=== PATIENT | female | born 1945 | race Caucasian/White ===

== ENCOUNTER 2020-04-08 13:50 | Outpatient (REF) | payer MEDICARE, SELFPAY ==
[2020-04-09 09:09] LABS: BV Int Neg Control Negative (Negative); BV Int Pos Control Positive (Positive)
== END 2020-04-08 13:51 | disposition home or self-care (01) ==
LOC: HO.LAB 13:50
PROVIDERS: PCP Internal Medicine; Referring Provider Internal Medicine; Visit Provider Obstetrics & Gynecology
DX: Z30.433 Encounter for removal and reinsertion of intrauterine contraceptive device (principal); N89.8 Other specified noninflammatory disorders of vagina
CPT/HCPCS: 51798; 87480; 87510; 87660; 99212

== ENCOUNTER → 2020-04-15 07:44 | Outpatient (REF) | payer MEDICARE, SELFPAY ==
--- NOTE | 2020-04-15 07:51 | CA_ITS ---
Transthoracic Echocardiogram Patient (Last, First, Middle): Luciana Colon M Gender: Female Date of : 1945 Age: 74 Procedure Date: 04/15/2020 Procedure Type: Transthoracic Echocardiogram Location: OP Height: 167.64 cm Weight: 66.23 kg BSA: 1.75 m2 Heart Rate: bpm BP: 118 / 60 mmHg Construction Project Mgr: Referring MD: Andrea Morales MD Symptoms: R55 - Syncope and collapse Study Quality: Good ECG Rhythm: Sinus Conclusions: - The left ventricular systolic function is normal. The visually estimated ejection fraction is between 60-65%. - No obvious valvular pathology seen on this study. Findings Left Ventricle Normal left ventricular cavity size. There is mildly increased left ventricular wall thickness. The left ventricular systolic function is normal. The visually estimated ejection fraction is between 60-65%. There is no evidence of regional wall motion abnormalities. E/E prime ratio is between 8 and 15 consistent with indeterminate filling pressures. Evidence suggests grade I (mild) diastolic dysfunction. Right Ventricle Normal right ventricular cavity size and systolic function. Atria The left atrium is normal in size. The right atrium is normal in size. Aortic Valve There is a normal trileaflet aortic valve. There is no aortic valve stenosis. There is no aortic valve regurgitation. Mitral Valve The mitral valve appears normal. There is trace mitral valve regurgitation. There is no mitral valve stenosis. Pulmonic Valve The pulmonic valve was not well visualized. There is trace pulmonic valve regurgitation. Tricuspid Valve Normal tricuspid valve structure. There is mild tricuspid valve regurgitation. Top normal RVSP. Great Vessels The aortic annulus, sinuses of valsalva, and asc aorta are normal in size. Venous The inferior vena cava is normal in size and collapses greater than 50% with inspiration. Pericardium/Pleural There is no evidence of pericardial effusion. Prior Study Comparison No significant change compared to prior study. Recommendations, Care & Conclusions No obvious valvular pathology seen on this study. Measurements 2D Linear Measurements IVSd: 1.12 0.6-0.9/0.6-1.0 cm LVIDd: 3.72 3.9-5.3/4.2-5.9 cm LVIDd Index: 2.13 2.4-3.2/2.2-3.1 cm/m2 LVIDs: 2.22 2.0-3.6 cm LVPWd: 1.18 0.7-1.1 cm Ao Root: 2.90 2.1-3.5 cm LA Diam: 2.90 2.7-3.8/3.0-4.0 cm LAIDs Index: 1.66 1.5-2.3 cm/m2 LV Mass: 173.36 67-162/88-224 g LV Mass Index: 99.06 43-95/49-115 g/m2 LVOT Diam: 2.20 3.0+(-)1.3 cm Mitral Valve MV Pk E: 0.72 MV PK A: 0.95 MV Decel Time: 194.00 E/A: 0.80 E'Lateral: 7.83 E'Medial: 5.61 E/E' Med: 12.90 E/E' Lat: 9.20 PHT: 57.00 MVA PHT: 3.86 Decel Sutton: 3.73 Aortic Valve AoV Pk Tarik: 1.72 AoV Mn Tarik: 1.22 AoV VTI: 0.38 AoV Pk Grad: 12.00 Aov Mn Grad: 7.00 MARYLIN Cont.VTI: 2.64 LVOT LVOT Pk Tarik: 1.23 LVOT Mn Tarik: 0.89 LVOT VTI: 0.26 LVOT Pk Grad: 6.00 LVOT Mn Grad: 4.00 LVOT Diam: 2.20 LVOT Area: 3.80 Diastolic Function MV Pk E: 0.72 MV Pk A: 0.95 E/A: 0.80 E'Medial: 5.61 E/E' Med: 12.90 E' Laterial: 7.83 E/E' Lat: 9.20 Tricuspid Valve TR Pk Tarik: 2.84 TR Pk Grad: 32.00 RA Press: 3.00 RVSP: 35.00 Great Vessels Aorta Ao Root-2D: 2.90 2.0-3.7 cm Ao Asc: 3.30 2.1-3.4 cm Pulmonary Valve PV Pk Tarik: 1.09 Peak PV Grad: 5.00 Updated in Other Vendor System with Status of Final Bharathi Aguilera MD electronically signed on 04/16/2020 4:31:08 PM with status of Final
== END ==
LOC: HO.CARD 07:44
PROVIDERS: PCP Internal Medicine; Visit Provider Internal Medicine
DX: R55 Syncope and collapse (principal)
CPT/HCPCS: 93306

== ENCOUNTER 2020-04-30 11:50 | Outpatient (REF) | payer MEDICARE, SELFPAY ==
[2020-05-01 09:35] LABS: BV Int Neg Control Negative (Negative); BV Int Pos Control Positive (Positive)
== END 2020-04-30 11:51 | disposition home or self-care (01) ==
LOC: HO.LAB 11:50
PROVIDERS: PCP Internal Medicine; Visit Provider Obstetrics & Gynecology
DX: N81.9 Female genital prolapse, unspecified (principal)
CPT/HCPCS: 57160; 87480; 87510; 87660; 99212

== ENCOUNTER 2020-05-13 06:12 | Outpatient (REF) | payer MEDICARE, SELFPAY ==
[2020-05-13 07:07] LABS: MANUAL DIFF FLAG NO
[2020-05-13 07:22] LABS: Basophils Percent Auto 0.3 % (0-2); Hematocrit 39.2 % (37-47); Hemoglobin 12.7 g/dl (12.0-16.0); Imm Gran Abs Auto 0.01 X10*3/uL (0.00-0.03); Imm Gran Pct Auto 0.3 % (0.0-0.4); Lymphocytes Absolute Auto 1.9 X10*3/uL (1.2-4.9); Lymphocytes Percent Auto 51.5 % (20-40); Mean Corpuscular HGB Conc 32.4 g/dl (31.0-35.0); Mean Corpuscular Hemoglobin 28.3 pg (27.0-33.0); Mean Corpuscular Volume 87.5 fL (80-98); Mean Platelet Volume 8.8 fL (9.4-12.3); Monocytes Absolute Auto 0.4 X10*3/uL (0.1-1.2); Monocytes Percent Auto 11.1 % (2-11); Neutrophils Absolute Auto 1.4 X10*3/uL (2.0-8.3); Neutrophils Percent Auto 36.8 % (45-73); Platelet Count 252 X10*3/uL (160-400); Red Blood Count 4.48 X10*6/uL (4.20-5.50); Red Cell Distribution Width 12.5 % (11.0-16.0); White Blood Count 3.8 X10*3/uL (4.8-10.8)
[2020-05-13 07:47] LABS: Thyroid Stimulating Hormone 0.06 uIU/mL (0.32-4.0)
[2020-05-13 07:48] LABS: Alanine Aminotransferase 14 U/L (0-31); Albumin Level 3.9 g/dL (3.5-5.0); Alkaline Phosphatase 69 U/L (39-117); Anion Gap 9 (12-20); Aspartate Amino Transferase 15 U/L (5-31); Bilirubin Total 0.5 mg/dL (0.0-1.0); Blood Urea Nitrogen 14 mg/dL (9-16); Carbon Dioxide 29 mmol/L (22-29); Chloride 106 mmol/L (96-108); Cholesterol 189 mg/dL; Estimated Glomerular Filt Rate > 60; Glucose Fasting 109 mg/dL (60-99); HDL Cholesterol 61 mg/dL; LDL Cholesterol Calculated 117 mg/dl; Potassium 4.2 mmol/l (3.3-5.1); Sodium 140 mmol/L (135-145); Total Protein 6.6 g/dL (6.5-8.0); Triglycerides 56 mg/dL
[2020-05-13 09:11] LABS: Calcium 12.6 mg/dL (8.4-10.2)
== END 2020-05-13 06:13 | disposition home or self-care (01) ==
LOC: HO.LAB 06:12
PROVIDERS: Visit Provider Internal Medicine
DX: E03.9 Hypothyroidism, unspecified (principal); E11.9 Type 2 diabetes mellitus without complications; Z00.00 Encounter for general adult medical examination without abnormal findings
CPT/HCPCS: 36415; 80053; 80061; 84443; 85025

== ENCOUNTER 2020-05-19 06:07 | Outpatient (REF) | payer MEDICARE, SELFPAY ==
[2020-05-19 07:55] LABS: Thyroid Stimulating Hormone 0.04 uIU/mL (0.32-4.0)
[2020-05-19 08:20] LABS: Calcium 12.6 mg/dL (8.4-10.2)
== END 2020-05-19 06:08 | disposition home or self-care (01) ==
LOC: HO.LAB 06:07
PROVIDERS: PCP Internal Medicine; Visit Provider Internal Medicine
DX: E83.52 Hypercalcemia (principal); E03.9 Hypothyroidism, unspecified
CPT/HCPCS: 82310; 84443

== ENCOUNTER → 2020-11-07 11:19 | Outpatient (BNVA) | payer MEDICARE, SELFPAY | PROVIDERS: PCP Internal Medicine; Visit Provider Obstetrics & Gynecology | DX: N81.9 Female genital prolapse, unspecified (principal) | CPT/HCPCS: 57160; 99212 ==

== ENCOUNTER 2020-12-09 07:40 | Outpatient (REF) | payer MEDICARE, SELFPAY ==
--- NOTE | ~2020-12-09 | XR_ITS ---
EXAMINATION: XR ANKLE, LEFT CLINICAL INFORMATION: Pain. COMPARISON: None TECHNIQUE: AP, lateral, and mortise views of the left ankle. FINDINGS: The ankle mortise and subtalar joints are normal. There is lateral malleolar soft tissue swelling. There is old undisplaced fracture tip of the lateral malleolus. There is a moderate-sized calcaneal heel enthesophyte. XR/XR ankle LT min 3V IMPRESSION: Old, non-healed fracture tip of the lateral malleolus with mild soft tissue swelling. There is no visible acute fracture or dislocation seen. Moderate size calcaneal heel enthesophyte.
== END 2020-12-09 07:41 | disposition home or self-care (01) ==
LOC: HO.HOSX 07:40
PROVIDERS: Visit Provider Physician Assistant
DX: S82.832D Other fracture of upper and lower end of left fibula, subsequent encounter for closed fracture with routine healing (principal)
CPT/HCPCS: 73610; 99202

== ENCOUNTER → 2020-12-11 08:50 | Outpatient (BNVA) | payer MEDICARE, SELFPAY | PROVIDERS: Visit Provider Advanced Practice Midwife | DX: Z46.89 Encounter for fitting and adjustment of other specified devices (principal); T83.9XXA Unspecified complication of genitourinary prosthetic device, implant and graft, initial encounter; R32 Unspecified urinary incontinence | CPT/HCPCS: 57160; 99212 ==

== ENCOUNTER 2020-12-16 07:08 | Outpatient (REF) | payer MEDICARE, SELFPAY ==
[2020-12-16 08:06] LABS: MANUAL DIFF FLAG NO
[2020-12-16 08:18] LABS: Basophils Percent Auto 0.2 % (0-2); Hematocrit 39.3 % (37-47); Hemoglobin 12.8 g/dl (12.0-16.0); Imm Gran Abs Auto 0.01 X10*3/uL (0.00-0.03); Imm Gran Pct Auto 0.2 % (0.0-0.4); Lymphocytes Absolute Auto 1.9 X10*3/uL (1.2-4.9); Lymphocytes Percent Auto 38.8 % (20-40); Mean Corpuscular HGB Conc 32.6 g/dl (31.0-35.0); Mean Corpuscular Hemoglobin 28.8 pg (27.0-33.0); Mean Corpuscular Volume 88.3 fL (80-98); Mean Platelet Volume 9.1 fL (9.4-12.3); Monocytes Absolute Auto 0.5 X10*3/uL (0.1-1.2); Monocytes Percent Auto 10.9 % (2-11); Neutrophils Absolute Auto 2.5 X10*3/uL (2.0-8.3); Neutrophils Percent Auto 49.9 % (45-73); Platelet Count 275 X10*3/uL (160-400); Red Blood Count 4.45 X10*6/uL (4.20-5.50); Red Cell Distribution Width 13.2 % (11.0-16.0)
[2020-12-16 08:44] LABS: Alanine Aminotransferase 10 U/L (0-31); Alkaline Phosphatase 71 U/L (39-117); Anion Gap 12 (12-20); Aspartate Amino Transferase 15 U/L (5-31); Bilirubin Total 0.6 mg/dL (0.0-1.0); Blood Urea Nitrogen 12 mg/dL (9-16); Calcium 8.9 mg/dL (8.4-10.2); Carbon Dioxide 28 mmol/L (22-29); Chloride 107 mmol/L (96-108); Cholesterol 215 mg/dL; Estimated Glomerular Filt Rate > 60; Glucose Fasting 104 mg/dL (60-99); HDL Cholesterol 74 mg/dL; LDL Cholesterol Calculated 129 mg/dl; Potassium 4.2 mmol/L (3.3-5.1); Sodium 143 mmol/L (135-145); Total Protein 6.8 g/dL (6.5-8.0); Triglycerides 60 mg/dL
[2020-12-16 09:07] LABS: Thyroid Stimulating Hormone 3.62 uIU/mL (0.32-4.0)
== END 2020-12-16 07:09 | disposition home or self-care (01) ==
LOC: HO.LAB 07:08
PROVIDERS: PCP Internal Medicine; Visit Provider Internal Medicine
DX: Z00.00 Encounter for general adult medical examination without abnormal findings (principal); E03.9 Hypothyroidism, unspecified; E11.9 Type 2 diabetes mellitus without complications; E83.52 Hypercalcemia
CPT/HCPCS: 36415; 80053; 80061; 84443; 85025

== ENCOUNTER 2020-12-23 15:01 | Outpatient (REF) | payer MEDICARE, SELFPAY ==
[2020-12-24 09:19] LABS: BV Int Neg Control Negative (Negative); BV Int Pos Control Positive (Positive)
== END 2020-12-23 15:02 | disposition home or self-care (01) ==
LOC: HO.LAB 15:01
PROVIDERS: PCP Internal Medicine; Visit Provider Advanced Practice Midwife
DX: T83.9XXA Unspecified complication of genitourinary prosthetic device, implant and graft, initial encounter (principal); N81.4 Uterovaginal prolapse, unspecified; R32 Unspecified urinary incontinence
CPT/HCPCS: 87480; 87510; 87660; 99212

== ENCOUNTER 2021-01-21 08:43 | Outpatient (REF) | payer MEDICARE, SELFPAY ==
--- NOTE | ~2021-01-21 | MM_ITS ---
EXAMINATION: BONE DENSITOMETRY CLINICAL INDICATION: Hypercalcemia. COMPARISON: Previous BD dated 01/30/2015 and baseline BD dated 06/21/2008. TECHNIQUE: Using a [employer] DXA System (software version: 13.1) manufactured by [employer] dual-energy x-ray absorptiometry was performed of the lumbar spine, left hip, and right forearm radius 33%. The images are of good technical quality. Summary results are attached. FINDINGS: AP SPINE L1-L4: Current: BMD 0.927 g/cm2, Z-score -0.7, T-score -2.1, osteopenia, 11.2% decrease from previous, 7.5% decrease from baseline (<5% change is not significant). Prior: BMD 1.044 g/cm2. Baseline: BMD 1.048 g/cm2. LEFT FEMUR, NECK: Current: BMD 0.694 g/cm2, Z-score -0.8, T-score -2.5, osteoporosis. Prior: BMD 0.795 g/cm2. Baseline: BMD 0.828 g/cm2. LEFT FEMUR, TOTAL: Current: BMD 0.787 g/cm2, Z-score -0.3, T-score -1.7, osteopenia, 11.1% decrease from previous, 17.7% decrease from baseline (<5% change is not significant). Prior: BMD 0.885 g/cm2. Baseline: BMD 0.956 g/cm2. RIGHT FOREARM RADIUS 33%: BMD 0.541 g/cm2, Z-score -1.6, T-score -3.8, osteoporosis. Prior: Not previously measured. IDENTIFIED RISK FACTORS: Menopause, history of fracture (adult), hyperparathyroid. HISTORY OF FRACTURE: Ankle. MEDICATIONS: Calcium, vitamin D. MM/XR DEXA appendicular skeleton IMPRESSION: 1. DIAGNOSIS: Osteoporosis based on the lowest T-score value of -3.8 in the forearm radius 33% applying World Health Organization criteria. 2. 10-YEAR FRACTURE RISK PREDICTION, FRAX: Major osteoporotic fracture (clinical spine, forearm, hip or shoulder) 23.8%. Hip fracture 7.0%. 3. Treatment Recommendations: NOF guidelines recommend consideration for treatment in postmenopausal women and men age 50 and older presenting with the following: -A hip or vertebral (clinical or morphometric) fracture. -T-score less than or equal to -2.5 at the femoral neck or spine after appropriate evaluation to exclude secondary causes. -Low bone mass at the hip or spine and a 10-year fracture probability by FRAX of greater than or equal to 3% for hip fracture or greater than or equal to 20% for major osteoporotic fracture based on the [place] adapted WHO algorithm. 4. Other Recommendations: All treatment decisions require clinical judgment and consideration of individual patient factors, including patient preferences, comorbidities, previous drug use, risk factors not captured in the FRAX model (e.g. frailty, falls, vitamin D deficiency, increased bone turnover, interval significant decline in bone density) and possible under or overestimation of fracture risk by FRAX. Additional medical evaluation for secondary cause of low bone mineral density may be appropriate. FUTURE SCAN RECOMMENDATION: People with diagnosed cases of osteoporosis or at high risk for fracture should have regular bone mineral density tests. For patients eligible for Medicare, routine testing is allowed once every 2 years. The testing frequency can be increased to one year for patients who have rapidly progressing disease, those who are receiving or discontinuing medical therapy to restore bone mass, or have additional risk factors.
--- NOTE | ~2021-01-21 | MM_ITS ---
EXAMINATION: MM SCREENING DIGITAL BREAST TOMOSYNTHESIS, BILATERAL CLINICAL INFORMATION: Screening. Asymptomatic. The lifetime risk of breast cancer based on the Tyrer-Cuzick Model is 3%. COMPARISON: Mammography: 10/10/2018, 10/04/2017, 03/28/2017, 09/23/2016, 09/20/2016, 01/30/2015, 01/30/2013, 12/30/2010; targeted ultrasound left breast 03/28/2017, 09/23/2016. TECHNIQUE: Digital breast tomosynthesis is performed in both the craniocaudal and mediolateral oblique views along with computer-aided detection (CAD). Synthesized 2D images are generated from the tomosynthesis. FINDINGS: There are scattered areas of fibroglandular density (ACR BI-RADS breast composition Category b). Parenchymal pattern is similar to prior studies. There are scattered stable fibroglandular asymmetry. No developing density or interval mass or architectural abnormality. No abnormal calcifications. The axilla are unremarkable. No significant changes from prior exams. MM/MM tomosynthesis screening BI IMPRESSION: No mammographic evidence of malignancy. ASSESSMENT: BI-RADS 2: Benign RECOMMENDATION: Routine annual mammography screening. This patient's information was entered into a reminder system with a target due date for their next mammogram.
== END 2021-01-21 08:44 | disposition home or self-care (01) ==
LOC: HO.MAMMO 08:43
PROVIDERS: Visit Provider Internal Medicine
DX: Z12.31 Encounter for screening mammogram for malignant neoplasm of breast (principal); Z13.820 Encounter for screening for osteoporosis; E83.52 Hypercalcemia; E21.3 Hyperparathyroidism, unspecified; N81.4 Uterovaginal prolapse, unspecified; R32 Unspecified urinary incontinence; Z78.0 Asymptomatic menopausal state; Z46.89 Encounter for fitting and adjustment of other specified devices
CPT/HCPCS: 57160; 77063; 77067; 77081; 99212

== ENCOUNTER → 2021-01-22 14:44 | Outpatient (BNVA) | payer MEDICARE, SELFPAY | PROVIDERS: Visit Provider Advanced Practice Midwife | DX: Z46.6 Encounter for fitting and adjustment of urinary device (principal); R32 Unspecified urinary incontinence; N81.4 Uterovaginal prolapse, unspecified; E21.3 Hyperparathyroidism, unspecified; E03.9 Hypothyroidism, unspecified | CPT/HCPCS: 99212 ==

== ENCOUNTER → 2021-01-28 14:50 | Outpatient (BNVA) | payer MEDICARE, SELFPAY | PROVIDERS: Visit Provider Advanced Practice Midwife | DX: N81.4 Uterovaginal prolapse, unspecified (principal); R32 Unspecified urinary incontinence; I10 Essential (primary) hypertension; E21.3 Hyperparathyroidism, unspecified; E03.9 Hypothyroidism, unspecified; Z46.89 Encounter for fitting and adjustment of other specified devices | CPT/HCPCS: 99212 ==

== ENCOUNTER 2021-02-11 07:17 | Outpatient (REF) | payer MEDICARE, SELFPAY ==
--- NOTE | 2021-02-11 07:43 | ECG_ITS ---
Test Reason : z13.9 Blood Pressure : / mmHG Vent. Rate : 072 BPM Atrial Rate : 072 BPM P-R Int : 114 ms QRS Dur : 080 ms QT Int : 388 ms P-R-T Axes : 023 031 038 degrees QTc Int : 424 ms Normal sinus rhythm Normal ECG When compared with ECG of 05-JUN-2009 09:15, No significant change was found Referred By: Andrea Morales Electronically Signed By:IRA MCINTYRE
[2021-02-11 08:50] LABS: Calcium 9.5 mg/dL (8.4-10.2)
[2021-02-11 09:17] LABS: Thyroid Stimulating Hormone 0.21 uIU/mL (0.32-4.0)
== END 2021-02-11 07:18 | disposition home or self-care (01) ==
LOC: HO.LAB 07:17
PROVIDERS: PCP Internal Medicine; Visit Provider Internal Medicine
DX: E21.3 Hyperparathyroidism, unspecified (principal); E03.9 Hypothyroidism, unspecified
CPT/HCPCS: 36415; 82310; 84443; 93005

== ENCOUNTER → 2021-02-12 14:13 | Outpatient (BNVA) | payer MEDICARE, SELFPAY | PROVIDERS: Visit Provider Advanced Practice Midwife | DX: Z46.89 Encounter for fitting and adjustment of other specified devices (principal) | CPT/HCPCS: 99212 ==

== ENCOUNTER 2021-10-28 08:42 | Outpatient (REF) | payer MEDICARE, SELFPAY ==
[2021-10-29 11:01] LABS: BV Int Neg Control Negative (Negative); BV Int Pos Control Positive (Positive)
== END 2021-10-28 08:43 | disposition home or self-care (01) ==
LOC: HO.LAB 08:42
PROVIDERS: PCP Internal Medicine; Visit Provider Advanced Practice Midwife
DX: Z46.89 Encounter for fitting and adjustment of other specified devices (principal); Z11.3 Encounter for screening for infections with a predominantly sexual mode of transmission; N89.8 Other specified noninflammatory disorders of vagina
CPT/HCPCS: 87071; 87077; 87186; 87205; 87480; 87510; 87660; 99212

== ENCOUNTER 2021-11-13 08:01 | Outpatient (REF) | payer MEDICARE, SELFPAY ==
[2021-11-13 08:12] LABS: MANUAL DIFF FLAG NO
[2021-11-13 08:46] LABS: Basophils Percent Auto 0.4 % (0-2); Hematocrit 42.1 % (37.0-47.0); Hemoglobin 13.6 g/dl (12.0-16.0); Imm Gran Abs Auto 0.02 X10*3/uL (0.00-0.03); Imm Gran Pct Auto 0.4 % (0.0-0.4); Lymphocytes Absolute Auto 1.8 X10*3/uL (1.2-4.9); Lymphocytes Percent Auto 32.8 % (20-40); Mean Corpuscular HGB Conc 32.3 g/dl (31.0-35.0); Mean Corpuscular Hemoglobin 27.9 pg (27.0-33.0); Mean Corpuscular Volume 86.3 fL (80.0-98.0); Mean Platelet Volume 8.4 fL (9.4-12.3); Monocytes Absolute Auto 0.5 X10*3/uL (0.1-1.2); Monocytes Percent Auto 8.6 % (2-11); Neutrophils Absolute Auto 3.1 x10*3/uL (2.0-8.3); Neutrophils Percent Auto 57.8 % (45-73); Platelet Count 344 X10*3/uL (160-400); Red Blood Count 4.88 X10*6/uL (4.20-5.50); Red Cell Distribution Width 13.2 % (11.0-16.0); White Blood Count 5.3 X10*3/uL (4.8-10.8)
[2021-11-13 09:23] LABS: Alanine Aminotransferase 16 U/L (0-31); Albumin Level 4.1 g/dL (3.5-5.0); Alkaline Phosphatase 58 U/L (39-117); Anion Gap 13 (12-20); Aspartate Amino Transferase 16 U/L (5-31); Bilirubin Total 0.5 mg/dL (0.0-1.0); Blood Urea Nitrogen 11 mg/dL (9-16); Calcium 9.1 mg/dL (8.4-10.2); Carbon Dioxide 27 mmol/L (22-29); Chloride 106 mmol/L (96-108); Cholesterol 214 mg/dL; Estimated Glomerular Filt Rate > 60; Glucose Fasting 109 mg/dL (60-99); HDL Cholesterol 56 mg/dL; LDL Cholesterol Calculated 142 mg/dl; Potassium 4.3 mmol/L (3.3-5.1); Sodium 142 mmol/L (135-145); Triglycerides 80 mg/dL
[2021-11-13 09:44] LABS: Thyroid Stimulating Hormone 0.78 uIU/mL (0.32-4.0)
== END 2021-11-13 08:02 | disposition home or self-care (01) ==
LOC: HO.LAB 08:01
PROVIDERS: PCP Internal Medicine; Visit Provider Internal Medicine
DX: Z00.00 Encounter for general adult medical examination without abnormal findings (principal); Z13.9 Encounter for screening, unspecified; Z13.0 Encounter for screening for diseases of the blood and blood-forming organs and certain disorders involving the immune mechanism; E03.9 Hypothyroidism, unspecified
CPT/HCPCS: 36415; 80053; 80061; 84443; 85025

== ENCOUNTER → 2021-11-19 09:31 | Outpatient (BNVA) | payer MEDICARE, SELFPAY | PROVIDERS: PCP Internal Medicine; Visit Provider Advanced Practice Midwife | DX: Z46.89 Encounter for fitting and adjustment of other specified devices (principal) | CPT/HCPCS: 99212 ==

== ENCOUNTER 2021-12-14 09:00 | Outpatient (REF) | payer MEDICARE, SELFPAY ==
[2021-12-14 12:18] LABS: Alanine Aminotransferase 16 U/L (0-31); Albumin Level 4.2 g/dL (3.5-5.0); Alkaline Phosphatase 63 U/L (39-117); Anion Gap 11 (12-20); Aspartate Amino Transferase 17 U/L (5-31); Bilirubin Total 0.4 mg/dL (0.0-1.0); Blood Urea Nitrogen 13 mg/dL (9-16); Carbon Dioxide 27 mmol/L (22-29); Chloride 107 mmol/L (96-108); Estimated Glomerular Filt Rate > 60; Glucose Random 101 mg/dL (60-115); Phosphorus 3.3 mg/dL (2.7-4.5); Sodium 141 mmol/L (135-145)
[2021-12-14 12:28] LABS: Free T4 (Free Thyroxine) 0.98 ng/dL (0.71-1.85); Thyroid Stimulating Hormone 2.14 uIU/mL (0.32-4.0); Vitamin D 25-OH Total 51.8 ng/mL (>30)
[2021-12-16 12:56] LABS: Calcium (PTHI) 9.3 mg/dL (8.6-10.4); PTHI 49 pg/mL (16-77)
[2021-12-17 23:02] LABS: Prot Elec - Albumin 4.1 g/dL (3.8-4.8); Prot Elec - Alpha1 0.3 g/dL (0.2-0.3); Prot Elec - Alpha2 0.6 g/dL (0.5-0.9); Prot Elec - Beta 1 0.5 g/dL (0.4-0.6); Prot Elec - Beta 2 0.4 g/dL (0.2-0.5); Prot Elec - Gamma 1.1 g/dL (0.8-1.7)
[2021-12-19 16:02] LABS: Alkaline Phosphatase Bone 8.6 mcg/L (5.6-29.0)
== END 2021-12-14 09:01 | disposition home or self-care (01) ==
LOC: HO.LAB 09:00
PROVIDERS: PCP Internal Medicine; Visit Provider Internal Medicine
DX: M81.0 Age-related osteoporosis without current pathological fracture (principal); E03.9 Hypothyroidism, unspecified; E55.9 Vitamin D deficiency, unspecified; Z86.39 Personal history of other endocrine, nutritional and metabolic disease
CPT/HCPCS: 36415; 80053; 82306; 83970; 84075; 84100; 84165; 84439; 84443; 99202

== ENCOUNTER → 2021-12-31 09:51 | Outpatient (BNVA) | payer MEDICARE, SELFPAY | PROVIDERS: PCP Internal Medicine; Visit Provider Obstetrics & Gynecology | DX: Z46.89 Encounter for fitting and adjustment of other specified devices (principal) | CPT/HCPCS: 99212 ==

== ENCOUNTER 2022-01-27 13:00 | Outpatient (REF) | payer MEDICARE, SELFPAY ==
--- NOTE | ~2022-01-27 | US_ITS ---
EXAMINATION: US THYROID CLINICAL INFORMATION: Hypothyroidism, unspecified. COMPARISON: None TECHNIQUE: Linear transducer grayscale and color Doppler examination with attention to the region of the thyroid. FINDINGS: SIZE: Measurements of the thyroid lobes and nodules are given in sagittal, anteroposterior and transverse dimensions respectively. Right Thyroid Lobe: 5.30 x 1.69 x 1.51 cm, volume 7.09 mL. Parenchyma: The gland echotexture is heterogeneous. Thyroid vascularity is normal. Left Thyroid Lobe: 5.73 x 1.93 x 1.57 cm, volume 9.07 mL. Parenchyma: The gland echotexture is heterogeneous. Thyroid vascularity is normal. Isthmus: 0.19 cm in maximum AP dimension. Estimated total number of nodules greater than or equal to 1 cm: 2. Tour Agent nodules are described as follows: 1. Location: Right inferior. Size: 0.82 x 0.55 x 0.55 cm, volume 0.13 mL. Nodule characteristics: Composition: Solid/almost completely solid (2). Echogenicity: Cannot be determined (1). Shape: Not taller than wide (0). Margins: Smooth (0). Echogenic Foci: None (0). ACR TI-RADS total points: 3 ACR TI-RADS category: 3 2. Location: Right mid. Size: 1.2 x 0.80 x 0.60 cm, volume 0.28 mL. Nodule characteristics: Composition: Cannot be determined (2). Echogenicity: Hypoechoic (2). Shape: Taller than wide (3). Margins: Smooth (0). Echogenic Foci: None (0). ACR TI-RADS total points: 7 ACR TI-RADS category: 5 3. Location: Right mid. Size: 0.93 x 0.41 x 0.71 cm, volume 0.14 mL. Nodule characteristics: Composition: Cannot be determined (2). Echogenicity: Hypoechoic (2). Shape: Not taller than wide (0). Margins: Smooth (0). Echogenic Foci: None (0). ACR TI-RADS total points: 4 ACR TI-RADS category: 4 4. Location: Right mid. Size: 0.70 x 0.28 x 0.55 cm, volume 0.05 mL. Nodule characteristics: Composition: Mixed cystic and solid (1). Echogenicity: Hypoechoic (2). Shape: Not taller than wide (0). Margins: Smooth (0). Echogenic Foci: Macrocalcifications (1). ACR TI-RADS total points: 4 ACR TI-RADS category: 4 5. Location: Left mid. Size: 1.1 x 0.50 x 0.55 cm, volume 0.16 mL. Nodule characteristics: Composition: Mixed cystic and solid (1). Echogenicity: Hypoechoic (2). Shape: Not taller than wide (0). Margins: Smooth (0). Echogenic Foci: None (0). ACR TI-RADS total points: 3 ACR TI-RADS category: 3 NODES: No lymphadenopathy is seen in the tissue surrounding the thyroid gland. US/US thyroid IMPRESSION: There are multiple pulmonary nodules identified. Nodule #2 Is appropriate for fine-needle aspiration based on size and appearance. The remaining nodules require no specific further follow-up. ACR TI-RADS RECOMMENDATION REFERENCE: Ultrasound-guided fine-needle aspiration, followup ultrasound, no further follow up. * TR1 (0 point) and TR 2 (2 points): No FNA or follow up * TR3 (3 points): FNA if more than or equal to 2.5 cm in maximum dimension, followup ultrasound in 1, 3 and 5 years if 1.5 to 2.4 cm in maximum dimension. * TR4 (4-6 points): FNA if more than or equal to 1.5 cm in maximum dimension, followup ultrasound in 1, 2, 3 and 5 years if 1 to 1.4 cm in maximum dimension. * TR5 (more than or equal to 7 points): FNA if more than or equal to 1 cm in maximum dimension, followup ultrasound every year for 5 years if 0.5 to 0.9 cm in maximum dimension. * TR3, TR4 or TR5 nodules that are below the size threshold for follow up receive no follow up.
== END 2022-01-27 13:01 | disposition home or self-care (01) ==
LOC: HO.HMGCX 13:00
PROVIDERS: PCP Internal Medicine; Visit Provider Internal Medicine
DX: E03.9 Hypothyroidism, unspecified (principal)
CPT/HCPCS: 76536

== ENCOUNTER 2022-02-02 10:59 | Outpatient (REF) | payer MEDICARE, SELFPAY ==
--- NOTE | ~2022-02-02 | MM_ITS ---
EXAMINATION: MM SCREENING DIGITAL BREAST TOMOSYNTHESIS, BILATERAL CLINICAL INFORMATION: Screening. Asymptomatic. The lifetime risk of breast cancer based on the Tyrer-Cuzick Model is 4%. COMPARISON: Mammography: 01/21/2021, 10/10/2018, 10/04/2017 TECHNIQUE: Digital breast tomosynthesis is performed in both the craniocaudal and mediolateral oblique views along with computer-aided detection (CAD). Synthesized 2D images are generated from the tomosynthesis. FINDINGS: There are scattered areas of fibroglandular density (ACR BI-RADS breast composition Category b). There are no significant masses, abnormal calcifications, or other abnormalities. Parenchymal pattern is similar to prior studies. There is no developing density or architectural abnormality. The axilla and skin contours are unremarkable. No significant changes. MM/MM tomosynthesis screening BI IMPRESSION: No mammographic evidence of malignancy. ASSESSMENT: BI-RADS 1: Negative RECOMMENDATION: Routine annual mammography screening. This patient's information was entered into a reminder system with a target due date for their next mammogram.
== END 2022-02-02 11:00 | disposition home or self-care (01) ==
LOC: HO.MAMMO 10:59
PROVIDERS: PCP Internal Medicine; Visit Provider Internal Medicine
DX: Z12.31 Encounter for screening mammogram for malignant neoplasm of breast (principal)
CPT/HCPCS: 77063; 77067

== ENCOUNTER → 2022-02-04 08:07 | Outpatient (BNVA) | payer MEDICARE, SELFPAY | PROVIDERS: Visit Provider Obstetrics & Gynecology | DX: Z46.89 Encounter for fitting and adjustment of other specified devices (principal) | CPT/HCPCS: 99212 ==

== ENCOUNTER → 2022-10-20 08:22 | Outpatient (BNVA) | payer MEDICARE, SELFPAY | PROVIDERS: Visit Provider Obstetrics & Gynecology | DX: Z46.6 Encounter for fitting and adjustment of urinary device (principal); N81.4 Uterovaginal prolapse, unspecified | CPT/HCPCS: 99212 ==

== ENCOUNTER 2023-01-17 10:42 | Outpatient (AMB) | payer MEDICARE, SELFPAY ==
[2023-01-17 10:48] VITALS: BP 130/72; BMI 28.7
--- NOTE | 2023-01-17 10:48 | A.OFFVIS_ITS ---
Intake Vital Signs 01/17/23 10:48 Height 5 ft 4 in Weight 167 lb BMI 28.7 BP 130/72 Intake Visit Reasons: pessary check Wind Energy Mechanic Required: No Information Interpreted: non-clinical & clinical Assistant Store Manager: Assistant Store Manager Present (Ting CAIN) Accompanied by: Self / Same As Patient Allergies No Known Allergies Allergy (Verified 01/17/23 10:58) Post menopausal: Yes HPI HPI Comments History of Present Illness Details The patient is presenting for pessary check no complaints no vaginal pain, discharge or pressure. The pessary did not slip out. [facility] Medical History Cystocele with prolapse History of hyperparathyroidism HTN (hypertension) Hyperparathyroidism Hypothyroid Hypothyroidism Incontinence Multinodular thyroid Osteoporosis Vitamin D deficiency Surgical History History of hernia repair History of lumpectomy of right breast History of parathyroid surgery Family History Father Cancer ALS (amyotrophic lateral sclerosis) Mother ALS (amyotrophic lateral sclerosis) Maternal Grandmother Diabetes Maternal Grandfather No problems noted. Paternal Grandmother No problems noted. Social History Housing: House Alcohol intake: current Alcohol intake frequency: holidays/special occasions only Patient Tobacco Use Status: Never used Tobacco e-Cigarette/Vaping Use: Never Used Second Hand Smoke Exposure: No service: No Current occupational status: retired Sexual orientation: Straight/Heterosexual Gender identity: Female Cognitive needs: No Hearing needs: Yes (hearing aide) Vision needs: Yes (glasses) Female Reproductive History Menstrual Age of Menarche: 14 Physical Exam Vital Signs: Last Vital Signs BP 130/72 01/17/23 10:48 BMI result Body Mass Index 28.7 Speculum Exam - Vagina: normal appearance of the vagina and other (No evidence of ulcer or pressure points) Speculum Exam - Cervix: Other cervical findings present (Erythematous cervix) Bimanual exam- vagina & uterus: normal bimanual exam Assessment & Plan Assessment & Plan (1) Cervical abrasion: Comment: Secondary to pessary Code(s): S37.69XA - Other injury of uterus, initial encounter Plan: Discussed with patient the finding on pelvic exam showing cervical abrasion secondary to a pessary, recommended to keep the pessary out for 4 weeks and schedule a recheck visit. Instructions given the patient to call in case of fever vaginal discharge or bleeding. All questions answered, the patient verbalized understanding agreed with the plan. Coding Level of Care Code Est Pt Level 3 (98562) Diagnoses Cervical abrasion S37.69XA
== END 2023-01-17 11:11 | disposition home or self-care (01) ==
LOC: HO.HWS 10:42
PROVIDERS: Visit Provider Obstetrics & Gynecology
DX: S37.69XA Other injury of uterus, initial encounter (principal)
CPT/HCPCS: 99213

== ENCOUNTER → 2023-01-17 10:42 | Outpatient (BNVA) | payer MEDICARE, SELFPAY | PROVIDERS: Visit Provider Obstetrics & Gynecology | DX: S37.69XA Other injury of uterus, initial encounter (principal); Z96.0 Presence of urogenital implants | CPT/HCPCS: 99212 ==

== ENCOUNTER → 2023-02-07 12:26 | Outpatient (BNVA) | payer MEDICARE, SELFPAY | PROVIDERS: Visit Provider Obstetrics & Gynecology | DX: Z46.89 Encounter for fitting and adjustment of other specified devices (principal) | CPT/HCPCS: 99212 ==

== ENCOUNTER → 2023-02-07 14:03 | Outpatient (AMB) | payer MEDICARE, SELFPAY ==
[2023-02-07 13:03] VITALS: BP 132/80; BMI 29.2
--- NOTE | 2023-02-07 13:03 | A.OFFVIS_ITS ---
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 No complaints no discharge or vaginal bleeding. [facility] Medical History Multinodular thyroid Hypothyroidism Vitamin D deficiency History of hyperparathyroidism Osteoporosis Hyperparathyroidism Incontinence Cystocele with prolapse Hypothyroid HTN (hypertension) Surgical History History of parathyroid surgery History of hernia repair History of lumpectomy of right breast Family History Father Cancer ALS (amyotrophic lateral sclerosis) Mother ALS (amyotrophic lateral sclerosis) Maternal Grandmother Diabetes Maternal Grandfather No problems noted. Paternal Grandmother No problems noted. Social History Housing: House Alcohol intake: current Alcohol intake frequency: holidays/special occasions only Patient Tobacco Use Status: Never used Tobacco e-Cigarette/Vaping Use: Never Used Second Hand Smoke Exposure: No Patient : No service: No Current occupational status: retired Sexual orientation: Straight/Heterosexual Gender identity: Female Cognitive needs: No Hearing needs: Yes (hearing aide) Vision needs: Yes (glasses) Female Reproductive History Menstrual Age of Menarche: 14 control method: none Physical Exam Vital Signs: Last Vital Signs BP 132/80 02/07/23 13:03 BMI result Body Mass Index 29.2 General: Yes Bimanual renal exam normal bilaterally External Female Exam: normal external appearance Speculum Exam - Vagina: other (Complete procidentia) Assessment & Plan Assessment & Plan (1) Encounter for pessary maintenance: Code(s): Z46.89 - Encounter for fitting and adjustment of other specified devices Plan: Pelvic exam revealed normal findings no evidence of erythema, pressure or any other abnormal finding, previous abrasion has completely healed. The donut pessary was inserted back in, it did not slip out after Valsalva in the supine, sitting, and standing position. Pt was instructed to call if vaginal pressure, pain or discharge occurs otherwise and to keep using Trimosan Gel 2-3 x/week. Follow-up in 3 months for another pessary check (2) Cervical abrasion: Comment: Resolved Code(s): S37.69XA - Other injury of uterus, initial encounter Plan: Discussed with the patient the finding on pelvic exam, cervical abrasion has healed with no evidence of abnormality. Coding Level of Care Code Est Pt Level 3 (64086) Diagnoses Encounter for pessary maintenance Z46.89 Cervical abrasion S37.69XA
== END | disposition home or self-care (01) ==
LOC: HO.HWS 12:26
PROVIDERS: Visit Provider Obstetrics & Gynecology
DX: Z46.89 Encounter for fitting and adjustment of other specified devices (principal); S37.69XA Other injury of uterus, initial encounter
CPT/HCPCS: 99213

== ENCOUNTER 2023-02-08 10:54 | Outpatient (REF) | payer MEDICARE, SELFPAY | END 2023-02-08 10:55 | disposition home or self-care (01) | LOC: HO.MAMMO 10:54 | PROVIDERS: Visit Provider Internal Medicine | DX: Z12.31 Encounter for screening mammogram for malignant neoplasm of breast (principal) | CPT/HCPCS: 77063; 77067 ==

== ENCOUNTER → 2023-02-08 11:00 | Outpatient (BNV) | payer MEDICARE, SELFPAY | PROVIDERS: Visit Provider Radiology Diagnostic Radiology | DX: Z12.31 Encounter for screening mammogram for malignant neoplasm of breast (principal) | CPT/HCPCS: 77063; 77067 ==

== ENCOUNTER 2023-11-09 09:53 | Outpatient (AMB) | payer MEDICARE, SELFPAY ==
[2023-11-09 09:59] VITALS: BP 138/84; PULSE 80; O2SAT 95; BMI 29.4
--- NOTE | 2023-11-09 09:59 | A.OFFPC_ITS ---
Vital Signs 11/09/23 09:59 Height 5 ft 4 in Weight 171 lb 0.4 oz BMI 29.4 BP 138/84 Blood Pressure Location Lt brachial Position Sitting Pulse 80 Pulse Source Pulse Oximeter Pulse Oximetry (%) 95 Oxygen Delivery Method Room Air Intake Visit Reasons: annual exam Integrated Campaign Manager Required: No Accompanied by: Self / Same As Patient Allergies No Known Allergies Allergy (Verified 11/09/23 09:59) Medication List - Last Reconciled 11/10/23 by Andrea Morales MD amlodipine 5 mg PO DAILY 90 days calcium carbonate (Calcium 600) 600 mg PO DAILY cholecalciferol (vitamin D3) 25 mcg PO DAILY levothyroxine 100 mcg PO DAILY Tobacco use date assessed: 11/09/23 Fall risk assessment: No Falls in past year Last assessed Fall Risk: 11/09/23 Dental Screening Dental Screen Date: 11/09/23 Did you have a dental visit in the last 12 months?: Yes Did you have a dental problem in the last 6 months where you did not have access to dental care?: No Was dental information given to patient?: Patient has dentist HPI annual exam HPI Details htn and hyperparathyroidism s/p parathyroidectomy; sees endo in [facility] Medical History (Updated 11/10/23 @ 08:43 by Andrea Morales MD) Hypertension Multinodular thyroid Hypothyroidism Vitamin D deficiency History of hyperparathyroidism Osteoporosis Hyperparathyroidism Incontinence Cystocele with prolapse Hypothyroid HTN (hypertension) Surgical History History of parathyroid surgery History of hernia repair History of lumpectomy of right breast Family History Father Cancer ALS (amyotrophic lateral sclerosis) Mother ALS (amyotrophic lateral sclerosis) Maternal Grandmother Diabetes Maternal Grandfather No problems noted. Paternal Grandmother No problems noted. Social History Housing: House Alcohol intake: current Alcohol intake frequency: holidays/special occasions only Patient Tobacco Use Status: Never used Tobacco e-Cigarette/Vaping Use: Never Used Second Hand Smoke Exposure: No service: No Current occupational status: retired Sexual orientation: Straight/Heterosexual Gender identity: Female Cognitive needs: No Hearing needs: Yes (hearing aide) Vision needs: Yes (glasses) Female Reproductive History Menstrual Age of Menarche: 14 Questionnaire PHQ-9 Over the last 2 weeks, how often have you been bothered by any of the following problems? 1. Little interest or pleasure in doing things: not at all 2. Feeling down, depressed, or hopeless: not at all 3. Trouble falling or staying asleep, or sleeping too much: not at all 4. Feeling tired or having little energy: not at all 5. Poor appetite or overeating: not at all 6. Feeling bad about yourself - or that you are a failure or have let yourself or your family down: not at all 7. Trouble concentrating on things, such as reading the newspaper or watching television: not at all 8. Moving or speaking so slowly that other people could have noticed. Or the opposite - being so fidgety or restless that you have been moving around a lot more than usual: not at all 9. Thoughts that you would be better off or of hurting yourself in some way: not at all Total score: 0 Depression Screening Interpretation: Negative Depression Screening Done: Yes 62498 - PHQ-9 Billing: Yes Source: Developed by Drs. Keyon Ahmadi, Luana Peña, Constantine Scott and colleagues, with an educational lefty from [employer]. Thrive Questionnaire Date Thrive assessed: 05/06/21 AUDIT C Alcohol Use Questionnaire (AUDIT-C) 1. How often do you have a drink containing alcohol?: Never 3. How often do you have six or more drinks on one occasion?: Never Total Score: 0 DENISE-7 AMB Questionnaire DENISE-7 Date DENISE - 7 assessed: 11/09/23 Feeling nervous, anxious, or on edge: 0 = Not at all Not being able to stop or control worryin = Not at all Worrying too much about different things: 0 = Not at all Trouble relaxin = Not at all Being so restless that it is hard to sit still: 0 = Not at all Becoming easily annoyed or irritable: 0 = Not at all Feeling afraid as if something awful might happen: 0 = Not at all Total DENISE-7 score (0-4 normal; 5-9 mild; 10-14 moderate; 15-21 severe): 0 Source: Developed by Gage [employer]val[employer], Constantine Scott and colleagues, with an educational lefty from [employer]. DENISE-7 Assessment Billing DENISE-7 Assessment Tool: DENISE-7 Assessment 72253 Review of Systems Const Denies chills, Denies fatigue, Denies headache(s) and Denies weight loss Eyes Denies change in vision, Denies diplopia and Denies eye pain ENT Denies vertigo, Denies dizziness, Denies headache(s) and Denies nasal discharge Card Denies chest pain, Denies rapid heart rate and Denies dyspnea on exertion Resp Denies chest congestion, Denies cough, Denies pain with cough and Denies dyspnea on exertion GI Denies abdominal pain, Denies hematochezia and Denies change in bowel habits Musc Denies myalgias, Denies arthralgias and Denies joint swelling Skin/Breast Denies lesions and Denies unusual bruising Neuro Denies vertigo, Denies dizziness, Denies headache(s) and Denies focal weakness Endo Denies fatigue Physical exam (Primary Care) Vital Signs: Last Vital Signs Pulse 80 11/09/23 09:59 BP 138/84 11/09/23 09:59 Pulse Ox 95 11/09/23 09:59 Oxygen Delivery Method Room Air 11/09/23 09:59 BMI result Body Mass Index 29.4 Tobacco/Smoking Status: Tobacco use Status Tobacco use date assessed 11/09/23 11/09/23 10:05 Patient Tobacco Use Status Never used Tobacco 11/09/23 10:05 e-Cigarette/Vaping Use Never Used 11/09/23 10:05 PHQ-9: PHQ-9 Score PHQ-9: Total score 0 11/09/23 10:05 Depression Screening Interpretation: Negative Const General: cooperative, healthy appearing and no acute distress Orientation/consciousness: oriented to person, oriented to place and oriented to time HENMT Head: Yes normal to inspection, Yes normocephalic and Yes atraumatic Mouth: Normal oral and palatal mucosa present and tongue normal Throat: Yes posterior oropharynx normal and Yes uvula midline Eyes General: appearance normal, both eyes and all related structures Neck Neck: Yes normal visual inspection, Yes full ROM and Yes no lymphadenopathy Thyroid: Thyroid normal Carotids: normal carotid upstroke Chest Chest palpation & inspection: normal inspection of the chest Resp Effort & Inspection: normal respiratory effort and able to speak in complete sentences Auscultation: clear to auscultation bilaterally Cardio Jugular venous distension: no JVD Palpation: normal PMI Rate: regular rate Rhythm: regular rhythm Heart sounds: S1 normal heart sound present and S2 normal heart sound present GI Inspection: Yes normal to inspection Palpation (GI): Soft to palpation and No hepatosplenomegaly present Auscultation: normal bowel sounds General: Yes no CVA tenderness Back/Spine/Pelvis Back: no CVA tenderness Skin General skin exam: no rashes or lesions noted Neuro General: oriented to person, oriented to place and oriented to time Extrem General: Yes normal to inspection and Yes full ROM Assessment and Plan Assessment & Plan (1) Physical exam: Code(s): Z00.00 - Encounter for general adult medical examination without abnormal findings Plan: do labs (2) Hypertension: Code(s): I10 - Essential (primary) hypertension Plan: stable; same rx (3) Hyperparathyroidism: Comment: see endo; cont same meds; 20 min reviewing chart eval pt and docuemnting Code(s): E21.3 - Hyperparathyroidism, unspecified Plan: f/u [place]o [place] Orders: Orders Lipid Panel Today Z13.220 - Encounter for screening for lipoid disorders XR DEXA axial skeleton Today M81.0 - Age-related osteoporosis without current pathological fracture Complete Blood Count Auto Diff Today Z13.0 - Encounter for screening for diseases of the blood and blood-forming organs and certain disorders involving the immune mechanism Comprehensive [place]. Panel Fast Today Z13.9 - Encounter for screening, unspecified Thyroid Stimulating Hormone Today Z13.29 - Encounter for screening for other suspected endocrine disorder Coding Level of Care Code Est Pt Prev Care >65y(55664) Diagnoses Physical exam Z00.00 Hypertension I10 Hyperparathyroidism E21.3 Additional Codes DENISE-7 Assessment Billing - DENISE-7 Assessment Tool: DENISE-7 Assessment 64022 ([id number])
== END 2023-11-09 10:32 | disposition home or self-care (01) ==
PROVIDERS: Visit Provider Internal Medicine
DX: Z00.00 Encounter for general adult medical examination without abnormal findings (principal); I10 Essential (primary) hypertension; E21.3 Hyperparathyroidism, unspecified
CPT/HCPCS: 99397

== ENCOUNTER 2023-12-07 06:37 | Outpatient (REF) | payer MEDICARE, SELFPAY ==
[2023-12-07 06:50] LABS: MANUAL DIFF FLAG NO
[2023-12-07 07:59] LABS: Basophils Percent Auto 0.2 % (0-2); Hematocrit 43.2 % (37.0-47.0); Hemoglobin 14.7 g/dl (12.0-16.0); Imm Gran Abs Auto 0.02 X10*3/uL (0.00-0.03); Imm Gran Pct Auto 0.4 % (0.0-0.4); Lymphocytes Absolute Auto 1.6 X10*3/uL (1.2-4.9); Lymphocytes Percent Auto 33.4 % (20-40); Mean Corpuscular Hemoglobin 29.4 pg (27.0-33.0); Mean Corpuscular Volume 86.4 fL (80.0-98.0); Mean Platelet Volume 9.3 fL (9.4-12.3); Monocytes Absolute Auto 0.5 X10*3/uL (0.1-1.2); Monocytes Percent Auto 10.2 % (2-11); Neutrophils Absolute Auto 2.7 x10*3/uL (2.0-8.3); Neutrophils Percent Auto 55.8 % (45-73); Platelet Count 262 X10*3/uL (160-400); Red Cell Distribution Width 13.3 % (11.0-16.0); White Blood Count 4.8 X10*3/uL (4.8-10.8)
[2023-12-07 08:21] LABS: Alanine Aminotransferase 16 U/L (0-31); Albumin Level 4.2 g/dL (3.5-5.0); Alkaline Phosphatase 64 U/L (39-117); Anion Gap 13 (12-20); Aspartate Amino Transferase 18 U/L (5-31); Bilirubin Total 0.7 mg/dL (0.0-1.0); Blood Urea Nitrogen 13 mg/dL (9-16); Calcium 9.3 mg/dL (8.4-10.2); Carbon Dioxide 26 mmol/L (22-29); Chloride 108 mmol/L (96-108); Cholesterol 214 mg/dL (<200); Estimated Glomerular Filt Rate > 60; Glucose Fasting 113 mg/dL (60-99); HDL Cholesterol 58 mg/dL (>40); LDL Cholesterol Calculated 143 mg/dL (<100); Potassium 3.6 mmol/L (3.3-5.1); Sodium 143 mmol/L (135-145); Total Protein 7.1 g/dL (6.5-8.0); Triglycerides 67 mg/dL (<150)
[2023-12-07 08:46] LABS: Thyroid Stimulating Hormone 0.76 uIU/mL (0.32-4.0)
== END 2023-12-07 06:38 | disposition home or self-care (01) ==
LOC: HO.LAB 06:37
PROVIDERS: PCP Internal Medicine; Visit Provider Internal Medicine
DX: Z13.0 Encounter for screening for diseases of the blood and blood-forming organs and certain disorders involving the immune mechanism (principal); Z13.220 Encounter for screening for lipoid disorders; Z13.9 Encounter for screening, unspecified; Z13.29 Encounter for screening for other suspected endocrine disorder
CPT/HCPCS: 36415; 80053; 80061; 84443; 85025

== ENCOUNTER 2023-12-26 12:58 | Outpatient (AMB) | payer MEDICARE, SELFPAY ==
[2023-12-26 13:00] VITALS: BP 140/82; PULSE 67; O2SAT 98; BMI 29.2
--- NOTE | 2023-12-26 13:00 | A.OFFPC_ITS ---
Vital Signs 12/26/23 13:00 Height 5 ft 4 in Weight 170 lb BMI 29.2 BP 140/82 H Blood Pressure Location Lt brachial Position Sitting Pulse 67 Pulse Source Pulse Oximeter Pulse Oximetry (%) 98 Oxygen Delivery Method Room Air Intake Visit Reasons: Pre-op/LT eye cataract-12/28 Applied Researcher Required: No Selector Packer: Not Required per policy Accompanied by: Self / Same As Patient Allergies No Known Allergies Allergy (Verified 12/26/23 13:01) Medication List - Last Reconciled 12/27/23 by Andrea Morales MD amlodipine 5 mg PO DAILY 90 days calcium carbonate (Calcium 600) 600 mg PO DAILY cholecalciferol (vitamin D3) 25 mcg PO DAILY levothyroxine 100 mcg PO DAILY Tobacco use date assessed: 11/09/23 Fall risk assessment: No Falls in past year Last assessed Fall Risk: 12/26/23 Dental Screening Dental Screen Date: 11/09/23 HPI Pre-op/LT eye cataract-12/28 HPI Details having cataracts repaired; has hypertension and hypothyroidism REPLACED BY [facility] Medical History (Updated 12/27/23 @ 12:20 by Andrea Morales MD) Hypertension Multinodular thyroid Hypothyroidism Vitamin D deficiency History of hyperparathyroidism Osteoporosis Hyperparathyroidism Incontinence Cystocele with prolapse Hypothyroid HTN (hypertension) Surgical History History of parathyroid surgery History of hernia repair History of lumpectomy of right breast Family History Father Cancer ALS (amyotrophic lateral sclerosis) Mother ALS (amyotrophic lateral sclerosis) Maternal Grandmother Diabetes Maternal Grandfather No problems noted. Paternal Grandmother No problems noted. Social History Housing: House Alcohol intake: current Alcohol intake frequency: holidays/special occasions only Patient Tobacco Use Status: Never used Tobacco e-Cigarette/Vaping Use: Never Used Second Hand Smoke Exposure: No service: No Current occupational status: retired Sexual orientation: Straight/Heterosexual Gender identity: Female Cognitive needs: No Hearing needs: Yes (hearing aide) Vision needs: Yes (glasses) Female Reproductive History Menstrual Age of Menarche: 14 Questionnaire Thrive Questionnaire Date Thrive assessed: 05/06/21 DENISE-7 AMB Questionnaire DENISE-7 Date DENISE - 7 assessed: 11/09/23 Source: Developed by Drs. Keyon Ahmadi, Luana Peña, Constantine Scott and colleagues, with an educational lefty from [employer]. Review of Systems Const Denies chills, Denies fatigue, Denies headache(s) and Denies weight loss Eyes Denies change in vision, Denies diplopia and Denies eye pain ENT Denies vertigo, Denies dizziness, Denies headache(s) and Denies nasal discharge Card Denies chest pain, Denies rapid heart rate and Denies dyspnea on exertion Resp Denies chest congestion, Denies cough, Denies pain with cough and Denies dyspnea on exertion GI Denies abdominal pain, Denies hematochezia and Denies change in bowel habits Musc Denies myalgias, Denies arthralgias and Denies joint swelling Skin/Breast Denies lesions and Denies unusual bruising Neuro Denies vertigo, Denies dizziness, Denies headache(s) and Denies focal weakness Endo Denies fatigue Physical exam (Primary Care) Vital Signs: Last Vital Signs Pulse 67 12/26/23 13:00 BP 140/82 H 12/26/23 13:00 Pulse Ox 98 12/26/23 13:00 Oxygen Delivery Method Room Air 12/26/23 13:00 BMI result Body Mass Index 29.2 Tobacco/Smoking Status: Tobacco use Status Tobacco use date assessed 11/09/23 12/26/23 13:05 Patient Tobacco Use Status Never used Tobacco 12/26/23 13:05 e-Cigarette/Vaping Use Never Used 12/26/23 13:05 Thrive Assessment: Date of Thrive Assessment Date Thrive assessed 05/06/21 12/26/23 13:05 Const General: cooperative, healthy appearing and no acute distress Orientation/consciousness: oriented to person, oriented to place and oriented to time HENMT Head: Yes normal to inspection, Yes normocephalic and Yes atraumatic Mouth: Normal oral and palatal mucosa present and tongue normal Throat: Yes posterior oropharynx normal and Yes uvula midline Eyes General: appearance normal, both eyes and all related structures Neck Neck: Yes normal visual inspection, Yes full ROM and Yes no lymphadenopathy Thyroid: Thyroid normal Carotids: normal carotid upstroke Chest Chest palpation & inspection: normal inspection of the chest Resp Effort & Inspection: normal respiratory effort and able to speak in complete sentences Auscultation: clear to auscultation bilaterally Cardio Jugular venous distension: no JVD Palpation: normal PMI Rate: regular rate Rhythm: regular rhythm Heart sounds: S1 normal heart sound present and S2 normal heart sound present GI Inspection: Yes normal to inspection Palpation (GI): Soft to palpation and No hepatosplenomegaly present Auscultation: normal bowel sounds General: Yes no CVA tenderness Back/Spine/Pelvis Back: no CVA tenderness Skin General skin exam: no rashes or lesions noted Neuro General: oriented to person, oriented to place and oriented to time Extrem General: Yes normal to inspection and Yes full ROM Assessment and Plan Assessment & Plan (1) Preop exam for internal medicine: Code(s): Z01.818 - Encounter for other preprocedural examination Plan: low risk for cardiovascular complications; cleared for surgery (2) Hypothyroidism: Code(s): E03.9 - Hypothyroidism, unspecified Plan: stable; same rx (3) Hypertension: Code(s): I10 - Essential (primary) hypertension Plan: stable; same rx Coding Level of Care Code Est Pt Level 4 (33700) Diagnoses Preop exam for internal medicine Z01.818 Hypothyroidism E03.9 Hypertension I10
== END 2023-12-26 13:32 | disposition home or self-care (01) ==
PROVIDERS: PCP Internal Medicine; Visit Provider Internal Medicine
DX: Z01.818 Encounter for other preprocedural examination (principal); E03.9 Hypothyroidism, unspecified; I10 Essential (primary) hypertension
CPT/HCPCS: 99214

== ENCOUNTER 2024-02-06 12:43 | Outpatient (AMB) | payer MEDICARE, SELFPAY ==
--- NOTE | 2024-02-06 12:53 | MHC.OFFVIS ---
Vital Signs 02/06/24 12:54 Height 5 ft 4 in Weight 169 lb 12.095 oz BMI 29.1 Intake Visit Reasons: pessary check Machine Packaging Technician Required: No Information Interpreted: non-clinical & clinical Educational Diagnostician: Educational Diagnostician Present (Ting Cunningham ANT) Accompanied by: Self / Same As Patient Allergies No Known Allergies Allergy (Verified 02/06/24 13:08) HPI Comments Details: The patient is presenting for pessary check no complaints no vaginal pain, discharge or pressure. The pessary did not slip out. [facility] Medical History Hypertension Multinodular thyroid Hypothyroidism Vitamin D deficiency History of hyperparathyroidism Osteoporosis Hyperparathyroidism Incontinence Cystocele with prolapse Hypothyroid HTN (hypertension) Surgical History History of parathyroid surgery History of hernia repair History of lumpectomy of right breast Family History Father Cancer ALS (amyotrophic lateral sclerosis) Mother ALS (amyotrophic lateral sclerosis) Maternal Grandmother Diabetes Maternal Grandfather No problems noted. Paternal Grandmother No problems noted. Social History Housing: House Alcohol intake: current Alcohol intake frequency: holidays/special occasions only Patient Tobacco Use Status: Never used Tobacco e-Cigarette/Vaping Use: Never Used Second Hand Smoke Exposure: No service: No Current occupational status: retired Sexual orientation: Straight/Heterosexual Gender identity: Female Cognitive needs: No Hearing needs: Yes (hearing aide) Vision needs: Yes (glasses) Female Reproductive History Menstrual Age of Menarche: 14 Review of Systems Const All systems reviewed & are unremarkable except as noted in HPI and below Physical Exam Vital Signs: BMI result Body Mass Index 29.1 General: Yes no CVA tenderness External Female Exam: normal external appearance and normal appearance of the urethra Speculum Exam - Vagina: normal appearance of the vagina, normal palpation, no lesions, no masses and other (No evidence of vaginal wall abrasion or ulceration) Speculum Exam - Cervix: normal appearance of the cervix, normal palpation, no lesions, no masses and nontender Bimanual exam- vagina & uterus: normal bimanual exam, normal palpation, uterine size normal, normal palpation, uterine shape normal, No Cervical tenderness present and non-tender Bimanual Exam- Adnexa, other: normal adnexae Back/Spine/Pelvis Back: no CVA tenderness Assessment & Plan Assessment & Plan (1) Encounter for pessary maintenance: Code(s): Z46.89 - Encounter for fitting and adjustment of other specified devices Category: Medical Plan: Pessary was taken out; pelvic exam revealed normal findings no evidence of erythema, pressure or any other abnormal finding. The pessary was replaced back in, it did not slip out after Valsalva in the supine, sitting, and standing position. Pt was instructed to call if vaginal pressure, pain or discharge occurs otherwise and to keep using Trimosan Gel 2-3 x/week. Follow-up in 3 months for another pessary check Coding Level of Care Code Est Pt Level 3 (70985) Diagnoses Encounter for pessary maintenance Z46.89
[2024-02-06 12:54] VITALS: BMI 29.1
== END 2024-02-06 13:22 | disposition home or self-care (01) ==
PROVIDERS: PCP Internal Medicine; Visit Provider Obstetrics & Gynecology
DX: Z46.89 Encounter for fitting and adjustment of other specified devices (principal)
CPT/HCPCS: 99213

== ENCOUNTER → 2024-02-06 12:43 | Outpatient (BNVA) | payer MEDICARE, SELFPAY | PROVIDERS: PCP Internal Medicine; Visit Provider Obstetrics & Gynecology | DX: Z46.89 Encounter for fitting and adjustment of other specified devices (principal); Z96.0 Presence of urogenital implants | CPT/HCPCS: 99212 ==

== ENCOUNTER 2024-02-14 10:42 | Outpatient (REF) | payer MEDICARE, SELFPAY ==
--- NOTE | ~2024-02-14 | MM_ITS ---
EXAMINATION: MM SCREENING DIGITAL BREAST TOMOSYNTHESIS, BILATERAL CLINICAL INFORMATION: Screening. Asymptomatic. COMPARISON: Mammography: Comparison is made with available priors TECHNIQUE: Digital breast mammography with tomosynthesis is performed in both the craniocaudal and mediolateral oblique views along with computer-aided detection (CAD). FINDINGS: There are scattered areas of fibroglandular density (ACR BI-RADS breast composition Category b). Bilateral excisional biopsies. Asymmetry medial right breast anterior to middle depth on CC view stable dating back to 2019 and therefore benign. There are no significant masses, abnormal calcifications, or other abnormalities. MM/MM tomosynthesis screening BI IMPRESSION: No mammographic evidence of malignancy. ASSESSMENT: BI-RADS BI-RADS 2 - Benign Findings RECOMMENDATION: Routine annual mammography screening. 1 year F/U This examination should not preclude the clinical evaluation of a suspicious palpable abnormality. This patient's information was entered into a reminder system with a target due date for their next mammogram. Electronically signed by: Mary Ribeiro DO 02/27/2024 04:16 PM EDT
--- NOTE | ~2024-02-14 | MM_ITS ---
EXAMINATION: BONE DENSITOMETRY CLINICAL INDICATION: Age-related osteoporosis without current pathological fracture. COMPARISON: Previous BD dated 01/21/2021 and baseline BD dated 06/21/2008, spine and left hip; 01/21/2021, forearm radius 33%. TECHNIQUE: Using a [employer] DXA System (software version: 13.1) manufactured by [employer], dual-energy x-ray absorptiometry was performed of the lumbar spine, left hip and left forearm radius 33%. The images are of good technical quality. Summary results are attached. FINDINGS: LEFT FEMUR, NECK: Current: BMD 0.734 g/cm2, Z-score -0.4, T-score -2.2, osteopenia. Prior: BMD 0.694 g/cm2. Baseline: BMD 0.828 g/cm2. LEFT FEMUR, TOTAL: Current: BMD 0.807 g/cm2, Z-score 0.0, T-score -1.6, osteopenia, 2.5% increase from previous, 15.6% decrease from baseline (<5% change is not significant). Prior: BMD 0.787 g/cm2. Baseline: BMD 0.956 g/cm2. AP SPINE L1-L4: Current: BMD 0.988 g/cm2, Z-score -0.2, T-score -1.6, osteopenia, 6.6% increase from previous, 5.7% decrease from baseline (<5% change is not significant). Prior: BMD 0.927 g/cm2. Baseline: BMD 1.048 g/cm2. RIGHT FOREARM RADIUS 33%: BMD 0.533 g/cm2, Z-score -1.4, T-score -3.9, osteoporosis, 1.5% decrease from baseline (<5% change is not significant). Baseline: BMD 0.541 g/cm2. IDENTIFIED RISK FACTORS: Menopause, hyperparathyroidism, history of fracture (adult). HISTORY OF FRACTURE: Other. MEDICATIONS: Calcium supplements or multivitamin, vitamin D. MM/XR DEXA appendicular skeleton IMPRESSION: 1. DIAGNOSIS: Osteoporosis based on the lowest T-score value of -3.9 in the forearm radius 33% applying World Health Organization criteria. 2. 10-YEAR FRACTURE RISK PREDICTION, FRAX: According to the guidelines, FRAX calculation should only be performed on patients in the osteopenia bone density category. Therefore, FRAX was not performed on this patient. 3. Treatment Recommendations: NOF guidelines recommend consideration for treatment in postmenopausal women and men age 50 and older presenting with the following: -A hip or vertebral (clinical or morphometric) fracture. -T-score less than or equal to -2.5 at the femoral neck or spine after appropriate evaluation to exclude secondary causes. -Low bone mass at the hip or spine and a 10-year fracture probability by FRAX of greater than or equal to 3% for hip fracture or greater than or equal to 20% for major osteoporotic fracture based on the [place] adapted WHO algorithm. 4. Other Recommendations: All treatment decisions require clinical judgment and consideration of individual patient factors, including patient preferences, comorbidities, previous drug use, risk factors not captured in the FRAX model (e.g. frailty, falls, vitamin D deficiency, increased bone turnover, interval significant decline in bone density) and possible under or overestimation of fracture risk by FRAX. Additional medical evaluation for secondary cause of low bone mineral density may be appropriate. FUTURE SCAN RECOMMENDATION: People with diagnosed cases of osteoporosis or at high risk for fracture should have regular bone mineral density tests. For patients eligible for Medicare, routine testing is allowed once every 2 years. The testing frequency can be increased to one year for patients who have rapidly progressing disease, those who are receiving or discontinuing medical therapy to restore bone mass, or have additional risk factors. Electronically signed by: Madhu Lucas MD 02/15/2024 03:37 PM EDT
== END 2024-02-14 10:43 | disposition home or self-care (01) ==
LOC: HO.MAMMO 10:42
PROVIDERS: PCP Internal Medicine; Visit Provider Internal Medicine
DX: M81.0 Age-related osteoporosis without current pathological fracture (principal); Z12.31 Encounter for screening mammogram for malignant neoplasm of breast
CPT/HCPCS: 77063; 77067; 77081

== ENCOUNTER → 2024-02-14 10:45 | Outpatient (BNV) | payer MEDICARE, SELFPAY | PROVIDERS: PCP Internal Medicine; Visit Provider Internal Medicine | DX: Z12.31 Encounter for screening mammogram for malignant neoplasm of breast (principal) | CPT/HCPCS: 77063; 77067 ==

== ENCOUNTER 2024-11-01 07:54 | Outpatient (AMB) | payer MEDICARE, SELFPAY ==
--- NOTE | 2024-11-01 07:55 | A.OFFVIS_ITS ---
Vital Signs 11/01/24 07:57 Height 5 ft 4 in Weight 169 lb BMI 29.0 Intake Visit Reasons: pessary check (pt wants October appt) Manager Studio Required: No Information Interpreted: non-clinical & clinical Digital Ad Trafficker: Digital Ad Trafficker Present (Ting Cunningham ANT) Accompanied by: Self / Same As Patient Allergies No Known Allergies Allergy (Verified 11/01/24 07:58) Post menopausal: Yes HPI Comments Details: The patient is presenting for pessary check no complaints no vaginal pain, discharge or pressure. The pessary did not slip out. [facility] Medical History Hypertension Multinodular thyroid Hypothyroidism Vitamin D deficiency History of hyperparathyroidism Osteoporosis Hyperparathyroidism Incontinence Cystocele with prolapse Hypothyroid HTN (hypertension) Surgical History History of parathyroid surgery History of hernia repair History of lumpectomy of right breast Family History Father Cancer ALS (amyotrophic lateral sclerosis) Mother ALS (amyotrophic lateral sclerosis) Maternal Grandmother Diabetes Maternal Grandfather No problems noted. Paternal Grandmother No problems noted. Social History Housing: House Alcohol intake: current Alcohol intake frequency: holidays/special occasions only Patient Tobacco Use Status: Never used Tobacco e-Cigarette/Vaping Use: Never Used Second Hand Smoke Exposure: No service: No Current occupational status: retired Sexual orientation: Straight/Heterosexual Gender identity: Female Cognitive needs: No Hearing needs: Yes (hearing aide) Vision needs: Yes (glasses) Female Reproductive History Menstrual Age of Menarche: 14 Review of Systems Const All systems reviewed & are unremarkable except as noted in HPI and below Physical Exam Vital Signs: BMI result Body Mass Index 29.0 General: Yes no CVA tenderness External Female Exam: normal external appearance and normal appearance of the urethra Speculum Exam - Vagina: normal appearance of the vagina, normal palpation, no lesions and no masses Speculum Exam - Cervix: normal appearance of the cervix, normal palpation, no lesions, no masses and nontender Bimanual exam- vagina & uterus: normal bimanual exam, normal palpation, uterine size normal, normal palpation, uterine shape normal, No Cervical tenderness present and non-tender Bimanual Exam- Adnexa, other: normal adnexae Back/Spine/Pelvis Back: no CVA tenderness Assessment & Plan Assessment & Plan (1) Encounter for pessary maintenance: Code(s): Z46.89 - Encounter for fitting and adjustment of other specified devices Category: Medical Plan: Pessary was taken out; pelvic exam revealed normal findings no evidence of erythema, pressure or any other abnormal finding. The pessary was replaced back in, it did not slip out after Valsalva in the supine, sitting, and standing position. Pt was instructed to call if vaginal pressure, pain or discharge occurs otherwise and to keep using Trimosan Gel 2-3 x/week. Follow-up in 3 months for another pessary check Coding Level of Care Code Est Pt Level 3 (32908) Diagnoses Encounter for pessary maintenance Z46.89
[2024-11-01 07:57] VITALS: BMI 29.0
== END 2024-11-01 08:31 | disposition home or self-care (01) ==
LOC: HO.HWS 07:54
PROVIDERS: Visit Provider Obstetrics & Gynecology
DX: Z46.89 Encounter for fitting and adjustment of other specified devices (principal)
CPT/HCPCS: 99213

== ENCOUNTER → 2024-11-01 07:54 | Outpatient (BNVA) | payer MEDICARE, SELFPAY | PROVIDERS: Visit Provider Obstetrics & Gynecology | DX: Z46.89 Encounter for fitting and adjustment of other specified devices (principal) | CPT/HCPCS: 99212 ==

== ENCOUNTER 2024-11-21 15:35 | Outpatient (AMB) | payer MEDICARE, SELFPAY ==
--- NOTE | 2024-11-21 15:38 | A.OFFPC_ITS ---
Vital Signs 11/21/24 15:40 Height 5 ft 4 in Weight 170 lb 6 oz BMI 29.2 BP 130/80 Blood Pressure Location Lt brachial Position Sitting Pulse 101 H Pulse Source Pulse Oximeter Temp 97.3 F Temp Source Temporal Artery Scan Pulse Oximetry (%) 94 Oxygen Delivery Method Room Air Intake Visit Reasons: KOBI from [facility] Intake Note: Patient is here today for KOBI from Dr Morales. 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 Required: No Paranormal Investigator: Not Required per policy Accompanied by: Self / Same As Patient Allergies No Known Allergies Allergy (Verified 11/21/24 15:51) Medication List - Last Reconciled 11/21/24 by Brandi Dumas PA-C amlodipine 5 mg PO DAILY 90 days calcium carbonate (Calcium 600) 600 mg PO DAILY cholecalciferol (vitamin D3) 25 mcg PO DAILY levothyroxine 100 mcg PO DAILY Tobacco use date assessed: 11/21/24 Fall risk assessment: No Falls in past year Last assessed Fall Risk: 11/21/24 Dental Screening Dental Screen Date: 11/21/24 Did you have a dental visit in the last 12 months?: Yes Did you have a dental problem in the last 6 months where you did not have access to dental care?: No Was dental information given to patient?: Patient has dentist HPI KOBI from [facility] HPI Details 79 year old female for past medical hist ory of hyperparathyroidism, osteoporosis, hypertension, multinodular thyroid last seen 11/[address] Morales coming in for KOBI. In review of the notes, patient was seen by funds transfer clerk 10/2024 and follows with them regularly for pessary check. Presenting for a routine follow-up and management of multiple chronic conditions. The patient underwent a parathyroidectomy in [place], [place], where three parathyroid glands were removed. She now takes calcium supplements and follows up with an building associate in [place]. Diagnosed in her 20s, the patient has mitral valve prolapse, requiring prophylactic antibiotics before dental procedures to prevent bacterial endocarditis. The patient reports burning pain in the second toe of her left foot, which is relieved by removing her shoe. This symptom is suspected to be neuropathy, possibly related to a previous ankle fracture. Recent lab work indicated borderline diabetes and elevated cholesterol levels. The patient is attempting weight loss to manage these conditions. [facility] Medical History (Updated 11/21/24 @ 16:18 by Brandi Dumas PA-C) Hypertension Multinodular thyroid Hypothyroidism Vitamin D deficiency History of hyperparathyroidism Osteoporosis Hyperparathyroidism Incontinence Cystocele with prolapse Hypothyroid HTN (hypertension) Surgical History History of bilateral cataract extraction History of parathyroid surgery History of hernia repair History of lumpectomy of right breast Family History Father Cancer ALS (amyotrophic lateral sclerosis) Mother ALS (amyotrophic lateral sclerosis) Maternal Grandmother Diabetes Maternal Grandfather No problems noted. Paternal Grandmother No problems noted. Social History Housing: House Alcohol intake: current Alcohol intake frequency: holidays/special occasions only Patient Tobacco Use Status: Never used Tobacco e-Cigarette/Vaping Use: Never Used Second Hand Smoke Exposure: No service: No Current occupational status: retired Sexual orientation: Straight/Heterosexual Gender identity: Female Cognitive needs: No Hearing needs: Yes (hearing aide) Vision needs: Yes (glasses) Female Reproductive History Menstrual Age of Menarche: 14 Questionnaire PHQ-9 Over the last 2 weeks, how often have you been bothered by any of the following problems? 1. Little interest or pleasure in doing things: not at all 2. Feeling down, depressed, or hopeless: not at all 3. Trouble falling or staying asleep, or sleeping too much: not at all 4. Feeling tired or having little energy: not at all 5. Poor appetite or overeating: not at all 6. Feeling bad about yourself - or that you are a failure or have let yourself or your family down: not at all 7. Trouble concentrating on things, such as reading the newspaper or watching television: not at all 8. Moving or speaking so slowly that other people could have noticed. Or the opposite - being so fidgety or restless that you have been moving around a lot more than usual: not at all 9. Thoughts that you would be better off or of hurting yourself in some way: not at all Total score: 0 Depression Screening Interpretation: Negative Depression Screening Done: Yes Source: Developed by Drs. Keyon L. Galdino, Constantine Clark and colleagues, with an educational lefty from [employer]. Thrive Questionnaire Date Thrive assessed: 11/21/24 I am a: Patient What is your living situation today?: I have a steady place to live Within the past 12 months, did the food you bought not last and you didn't have the money to get more?: Never true Within the past 12 months, did you worry whether your food would run out before you got money to buy more?: Never true Do you have trouble paying for medicines?: No Do you have trouble getting transportation to medical appointments?: No Do you have trouble paying your heating and electricity bill?: No Do you have trouble taking care of your child, family member or friend?: No Do you have trouble with day-to-day activities such as bathing, preparing meals, shopping, managing finances, etc.?: No Are you currently unemployed and looking for a job?: No Are you interested in more education?: No Please select the resources that you would like help with: None Currently or been in a relationship where the following occur: No concerns reported THRIVE Score: 0 AUDIT C Alcohol Use Questionnaire (AUDIT-C) 1. How often do you have a drink containing alcohol?: Never Total Score: 0 DENISE-7 AMB Questionnaire DENISE-7 Date DENISE - 7 assessed: 11/21/24 Feeling nervous, anxious, or on edge: 0 = Not at all Not being able to stop or control worryin = Not at all Worrying too much about different things: 0 = Not at all Trouble relaxin = Not at all Being so restless that it is hard to sit still: 0 = Not at all Becoming easily annoyed or irritable: 0 = Not at all Feeling afraid as if something awful might happen: 0 = Not at all Total DENISE-7 score (0-4 normal; 5-9 mild; 10-14 moderate; 15-21 severe): 0 Source: Developed by Drs. Keyon Ahmadi, Constantine Clark and colleagues, with an educational lefty from [employer]. Review of Systems Const Denies body aches, Denies chills, Denies fever(s), Denies headache(s) and Denies poor appetite Eyes Reports no additional complaints ENT Denies dysphagia, Denies dizziness, Denies headache(s) and Denies odynophagia Card Denies chest pain, Denies syncope, Denies edema, Denies irregular heart rhythm, Denies lightheadedness and Denies dyspnea Resp Denies cough and Denies dyspnea GI Denies abdominal pain, Denies constipation, Denies dysphagia, Denies diarrhea, Denies nausea, Denies odynophagia and Denies vomiting Reports no additional complaints Musc Reports no additional complaints and Denies abnormal gait Skin/Breast Reports system reviewed and no additional complaints, except as documented Neuro Denies abnormal gait, Denies dizziness, Denies syncope and Denies headache(s) Psych Reports no additional complaints Physical exam (Primary Care) Vital Signs: Last Vital Signs Temp 97.3 F 11/21/24 15:40 Pulse 101 H 11/21/24 15:40 BP 130/80 11/21/24 15:40 Pulse Ox 94 11/21/24 15:40 Oxygen Delivery Method Room Air 11/21/24 15:40 BMI result Body Mass Index 29.2 Tobacco/Smoking Status: Tobacco use Status Tobacco use date assessed 11/21/24 11/21/24 15:47 Patient Tobacco Use Status Never used Tobacco 11/21/24 15:47 e-Cigarette/Vaping Use Never Used 11/21/24 15:47 PHQ-9: PHQ-9 Score PHQ-9: Total score 0 11/21/24 16:10 Depression Screening Interpretation: Negative Thrive Assessment: Date of Thrive Assessment Date Thrive assessed 11/21/24 11/21/24 15:47 Currently or been in a relationship where the following occur: No concerns reported Const General: cooperative, healthy appearing, comfortable and no acute distress Orientation/consciousness: patient oriented x3 [facility] Head: Yes normocephalic Ears: hearing grossly normal bilaterally General nose exam: Normal external nose present Eyes General: appearance normal, both eyes and all related structures Conjunctivae: conjunctivae normal Neck Neck: Yes full ROM and Yes no lymphadenopathy Resp Effort & Inspection: normal respiratory effort Auscultation: clear to auscultation bilaterally, no crackles, no rales, no rhonchi and no wheezes Cardio Rate: regular rate Rhythm: regular rhythm Skin General skin exam: no rashes or lesions noted Neuro General: patient oriented x3 Gait exam (Neuro): Normal gait present Extrem Other: no abnormality of the left foot. Intact sensation and pulses in the left foot General: Yes normal to inspection, Yes full ROM and No edema Psych Affect: normal affect Attitude: cooperative Insight: Good insight present (Psych) Judgement: Good judgement present (Psych) Coding Level of Care Code Est Pt Level 3 (36124) Diagnoses Primary hypertension I10 Hypertension type: primary hypertension Acquired hypothyroidism E03.9 Hypothyroidism type: acquired Multinodular thyroid E04.2 Osteoporosis M81.0 Cystocele with prolapse N81.4 Hyperparathyroidism E21.3 GERD (gastroesophageal reflux disease) K21.9 Hypercholesterolemia E78.00 Elevated blood sugar R73.9 Lung nodule R91.1 Neuropathy G62.9 Assessment & Plan Assessment & Plan (1) Hypertension: Code(s): I10 - Essential (primary) hypertension Category: Medical Qualifiers: Hypertension type: primary hypertension Qualified Code(s): I10 - Essential (primary) hypertension Plan: Continue on current blood pressure medication. Avoid salt intake and encourage healthy diet and regular exercise. (2) Hypothyroidism: Code(s): E03.9 - Hypothyroidism, unspecified Category: Medical Qualifiers: Hypothyroidism type: acquired Qualified Code(s): E03.9 - Hypothyroidism, unspecified Plan: Plan to repeat blood work at this time. (3) Multinodular thyroid: Comment: [facility] for endocrinology Code(s): E04.2 - Nontoxic multinodular goiter Category: Medical Plan: she has yearly maintenance with her building associate in [place]. PLan to order for thyroid labs. (4) Osteoporosis: Code(s): M81.0 - Age-related osteoporosis without current pathological fracture Category: Medical Plan: Patient is currently taking calcium and Vitamin D supplementation. (5) Cystocele with prolapse: Comment: procidential stage Code(s): N81.4 - Uterovaginal prolapse, unspecified Category: Medical Plan: Continue to follow with gynecology for pessary maintenance. (6) Hyperparathyroidism: Comment: s/p parathyroidectomy 2020 - [facility] Code(s): E21.3 - Hyperparathyroidism, unspecified Category: Medical Plan: Resolved at this time s/p parathyroidecomty. (7) GERD (gastroesophageal reflux disease): Code(s): K21.9 - Gastro-esophageal reflux disease without esophagitis Category: Medical Plan: Avoid trigger foods such as citrus, tomato products, soda, caffeine, spicy foods and other foods that may be irritating to your stomach. Avoid laying flat 3-4 hours after eating and elevate the head of the bed 30 degrees to prevent acid from moving into the esophagus. (8) Hypercholesterolemia: Code(s): E78.00 - Pure hypercholesterolemia, unspecified Category: Medical Plan: Avoid foods that are high in cholesterol such as red meat, fried foods, eggs and baked goods. Triglyceride goal of less than 150 and LDL goal of less than 130. Was told by her [place] PCP she had high cholesterol. (9) Elevated blood sugar: Code(s): R73.9 - Hyperglycemia, unspecified Category: Medical Plan: Decrease the amount of carbohydrates such as pasta, bread, rice, and potatoes and limit the amount of sweets. Although fruits are generally healthy they should be eaten in moderation as they are still high in sugar. (10) Lung nodule: Code(s): R91.1 - Solitary pulmonary nodule Category: Medical Plan: CT lung while in [place] showing lung nodule and recommending repeat in 6 months which will be completed by her PCP in [place]. (11) Neuropathy: Code(s): G62.9 - Polyneuropathy, unspecified Category: Medical Plan: Reporting burning pain in the left fourth digit happening occasionally. continue to monitor symptoms at this time. Plan The patient will continue to follow up with her building associate in [place] for management of hyperparathyroidism and thyroid health. Calcium supplementation will be maintained as prescribed. For mitral valve prolapse, the patient will continue prophylactic antibiotics before dental procedures to prevent bacterial endocarditis. The neuropathy in the left foot will be monitored, with attention to footwear that may alleviate symptoms. The patient is advised to continue weight management efforts to address borderline diabetes and hypercholesterolemia, with follow-up lab work to monitor these conditions. The longstanding hernia will be observed for any changes or symptoms that may require surgical intervention. Follow-up imaging for the liver cyst and lung nodule is scheduled in six months to assess for any changes. The patient is en couraged to maintain regular health screenings, including mammograms and bone density tests, as part of her health maintenance routine. This note was constructed using voice recognition software. While every effort has been made to ensure accuracy and senior solutions consultant, still areas may have been included sometimes these areas may affect the content or meeting of the given symptoms. Total time spent caring for the patient today was 30 minutes. This includes time spent before the visit reviewing the chart, time spent during the visit, and time spent after the visit and documentation. Patient was informed and verbally consented to the use of an ambient scribe for clinic note documentation during this visit. Orders: Orders Comprehensive Met. Panel Today K21.9 - Gastro-esophageal reflux disease without esophagitis, Z00.00 - Encounter for general adult medical examination without abnormal findings Complete Blood Count Auto Diff Today K21.9 - Gastro-esophageal reflux disease without esophagitis, Z00.00 - Encounter for general adult medical examination without abnormal findings Lipid Panel Today E78.00 - Pure hypercholesterolemia, unspecified TSH reflex Free T4 Today E03.9 - Hypothyroidism, unspecified, Z00.00 - Encounter for general adult medical examination without abnormal findings Free T4 (Free Thyroxine) Today E03.9 - Hypothyroidism, unspecified, Z00.00 - Encounter for general adult medical examination without abnormal findings Hemoglobin A1c Today E11.65 - Type 2 diabetes mellitus with hyperglycemia, R73.9 - Hyperglycemia, unspecified
[2024-11-21 15:40] VITALS: BP 130/80; PULSE 101; TEMP 36.3; O2SAT 94; BMI 29.2
== END 2024-11-21 16:21 | disposition home or self-care (01) ==
LOC: HO.HMCH 15:35
DX: I10 Essential (primary) hypertension (principal); E03.9 Hypothyroidism, unspecified; E04.2 Nontoxic multinodular goiter; M81.0 Age-related osteoporosis without current pathological fracture; N81.4 Uterovaginal prolapse, unspecified; E21.3 Hyperparathyroidism, unspecified; K21.9 Gastro-esophageal reflux disease without esophagitis; E78.00 Pure hypercholesterolemia, unspecified; R73.9 Hyperglycemia, unspecified; R91.1 Solitary pulmonary nodule; G62.9 Polyneuropathy, unspecified

== ENCOUNTER → 2024-11-21 15:35 | Outpatient (BNVA) | payer MEDICARE, SELFPAY | DX: I10 Essential (primary) hypertension (principal); E03.9 Hypothyroidism, unspecified; E04.2 Nontoxic multinodular goiter; M81.0 Age-related osteoporosis without current pathological fracture; N81.4 Uterovaginal prolapse, unspecified; E21.3 Hyperparathyroidism, unspecified; K21.9 Gastro-esophageal reflux disease without esophagitis; E78.00 Pure hypercholesterolemia, unspecified; R73.9 Hyperglycemia, unspecified; R91.1 Solitary pulmonary nodule; G62.9 Polyneuropathy, unspecified | CPT/HCPCS: 99212 ==

== ENCOUNTER 2025-01-14 15:22 | Emergency (ER) | payer MEDICARE, SELFPAY ==
--- NOTE | ~2025-01-14 | XR_ITS ---
EXAMINATION: XR CERVICAL SPINE CLINICAL INFORMATION: stiff neck after heavy lifting COMPARISON: None available. TECHNIQUE: 3 views of the cervical spine were obtained. FINDINGS: No significant scoliosis. There is mild straightening of the normal lordosis. Craniocervical junction and C1-2 articulation appear intact and aligned. No fracture, compression deformity, or suspicious bone lesion. No evidence of traumatic subluxation. Severe disc degeneration spanning C2-C7. Normal facet alignment with multilevel hypertrophic degenerative facet changes bilaterally. There is no prevertebral soft tissue swelling. Imaged lung apices are clear. XR/XR cervical spine 4V IMPRESSION: 1. No plain film evidence of acute cervical spine fracture or injury. 2. Moderate to advanced cervical spondylosis Electronically signed by: Henry Hewitt MD 01/14/2025 04:29 PM EDT
[2025-01-14 15:37] VITALS: BP 175/103; PULSE 115; RESP 20; TEMP 36.9; O2SAT 95; BMI 27.3
--- NOTE | 2025-01-14 15:38 | ED.NECK ---
HPI - Neck Pain/Injury General Chief Complaint: Neck Pain/Injury Stated Complaint: neck pain Time Seen by Provider: 01/14/25 16:41 Source: patient Mode of arrival: ambulatory Limitations: no limitations History of Present Illness ED Provider: David Gill HPI Narrative: 79 yold female with pmh of GERD, high cholesterol, hypothroidism presents to the ED fo posterior neck pain that is worse on movement since yesterday. patient states she was lifting heavy plants and pulled her neck muscle while bending down and has minimal movement while tuning head. Patient states no fever, chills, nausea, vomitting, photophobia, blunt head trauma, weakness, slurred speech, facial droop, chest pain, shortness of breath, or paralysis of extremities. Related Data Home Medications ?Medication ?Instructions ?Recorded ?Confirmed calcium carbonate (Calcium 600) 600 mg PO DAILY 11/07/20 11/21/24 cholecalciferol (vitamin D3) 25 25 mcg PO DAILY 11/07/20 11/21/24 mcg (1,000 unit) capsule levothyroxine 100 mcg tablet 100 mcg PO DAILY 11/17/21 11/21/24 Previous Rx's ?Medication ?Instructions ?Recorded amlodipine 5 mg tablet 5 mg PO DAILY 90 days #90 tabs 11/07/24 cyclobenzaprine 10 mg tablet 10 mg PO TID PRN muscle spasm #21 01/14/25 tabs naproxen 500 mg tablet 500 mg PO BID PRN pain #14 tabs 01/14/25 prednisone 20 mg tablet 40 mg (2 x 20 mg) PO DAILY 3 days 01/14/25 #6 tabs Allergies Allergy/AdvReac Type Severity Reaction Status Date / Time No Known Allergies Allergy Verified 01/14/25 15:43 Review of Systems Review of Systems: neck pain Yes all other systems are reviewed and are negative [facility] Past Medical History Medical History (Updated 01/15/25 @ 00:00 by Isabelle Denny) Hypertension Multinodular thyroid Hypothyroidism Vitamin D deficiency History of hyperparathyroidism Osteoporosis Hyperparathyroidism Incontinence Cystocele with prolapse Hypothyroid HTN (hypertension) Surgical History History of bilateral cataract extraction History of parathyroid surgery History of hernia repair History of lumpectomy of right breast Family History Family History Father Cancer ALS (amyotrophic lateral sclerosis) Mother ALS (amyotrophic lateral sclerosis) Maternal Grandmother Diabetes Maternal Grandfather No problems noted. Paternal Grandmother No problems noted. Social History Social History Housing: House Alcohol intake: current Alcohol intake frequency: holidays/special occasions only Patient Tobacco Use Status: Never used Tobacco e-Cigarette/Vaping Use: Never Used Second Hand Smoke Exposure: No Advance Directives: No Advance Directives Information Provided: No service: No Current occupational status: retired Sexual orientation: Straight/Heterosexual Gender identity: Female Cognitive needs: No Hearing needs: Yes (hearing aide) Vision needs: Yes (glasses) Physical Exam Vital Signs: Vital Signs: Last Vital Signs Temp 98.4 F 01/14/25 15:37 Pulse 115 H 01/14/25 15:37 Resp 20 01/14/25 15:37 BP 175/103 H 01/14/25 15:37 Pulse Ox 95 01/14/25 15:37 O2 Del Method Room Air 01/14/25 15:37 BMI result Body Mass Index 27.3 Const: General: cooperative, healthy appearing, comfortable, no acute distress, well developed, alert, awake, Physically active and acute distress Orientation/consciousness: patient oriented x3 HEENT: Head: Yes normal to inspection, Yes No palpable skull fracture present, Yes normocephalic and Yes atraumatic Eyes: General: appearance normal, both eyes and all related structures Visual Sher: normal visual sher by confrontation Alignment and Position: alignment normal and position normal Periorbital: periorbital findings normal Eyelids: Yes eyelids normal Conjunctivae: conjunctivae normal Sclerae: sclerae normal Corneas: corneas normal Pupils: Equal, round and reactive pupils present EOM: EOMs intact bilaterally Direct Ophthalmoscopy: normal light reflex and no photophobia Neck: Neck: Yes normal visual inspection, Yes full ROM, Yes no lymphadenopathy, Yes no meningeal signs, Yes trachea midline, Yes supple, No anterior neck swelling, No lymphadenopathy, Yes tender (posterior cervical tenderness) and Yes torticollis Chest: Chest palpation & inspection: normal inspection of the chest and normal palpation of entire chest wall Resp: Effort & Inspection: normal respiratory effort and able to speak in complete sentences Auscultation: clear to auscultation bilaterally Cardio: Jugular venous distension: no JVD Heart sounds: S1 normal heart sound present and S2 normal heart sound present GI: Inspection: Yes normal to inspection Palpation (GI): Soft to palpation, not firm, nontender, no guarding and not rigid : General: Yes no CVA tenderness Back/Spine/Pelvis: Back: no CVA tenderness and No back tenderness Skin: General skin exam: no rashes or lesions noted, elasticity normal and turgor normal Neuro: General: patient oriented x3, gait normal, tone normal, moves all extremities, Normal light touch and pain sensation, no meningeal signs, no focal motor deficits and CN's II-XI intact bilaterally Cranial nerves: Yes Equal, round and reactive pupils present Extrem: General: Yes normal to inspection, Yes full ROM and Yes capillary refill normal Psych: Appearance: grossly normal, well kempt and not disheveled Course Course Course Narrative: This is a Rapid Medical Examination (RME) performed by Barbara Jaffe PA-C in triage. Full HPI, ROS, assessment and treatment plan per primary provider in the Main ED. Hx: 79 yo F here for eval of neck stiffness since yesterday. reports lifting heavy items from her patio yesterday to get them out of the rain, believes she strained her neck during this. has also been straining with bending over to pull on her compression stockings. no vision changes, dizziness, numbness/tingling/weakness of the extremities. PE/vitals: pain with flexion of the neck. limited ROM of c spine with leftward and rightward motions. no midline c spine tenderness or step offs. Plan: xrs Medications Administered Discontinued Medications Generic Name Dose Route Start Last Admin Trade Name Freq PRN Reason Stop Dose Admin Cyclobenzaprine HCl 10 mg 01/14/25 16:45 01/14/25 16:56 Cyclobenzaprine Hcl 10 Mg Tablet PO 01/14/25 16:46 10 mg ONCE ONE Administration Ketorolac Tromethamine 30 mg 01/14/25 16:45 01/14/25 16:55 Ketorolac Tromethamine 30 Mg/Ml Vial IM 01/14/25 16:46 30 mg ONCE ONE Administration Prednisone 40 mg 01/14/25 16:45 01/14/25 16:56 Prednisone 20 Mg Tablet PO 01/14/25 16:46 40 mg ONCE ONE Administration Medical Decision Making Medical Decision Making MDM Narrative: 79 yold female with pmh of HTN, and hypothryoids presents to the ED for posterior neck pain after bending down and lifting heavy plants and moved neck awkwardly. Patient denies any anterior neck pain, chest pain, shorntess of breath, fever, or chlls. Patient states no photophobia or recent trauma. Patient is not on blood thinners. Not suspecting meningitis, carotid/vetebral dissection, brain bleed, encephalitits, ICH or any life threatening etiolog. Xrays shows spondylosis. Patient and daugher explained worrisome signs and informed to return to the ED immeidatleyt. Neck able to move after receiving meds. patient hypertensive and tachy due to pain and did not take her HTN meds this morning Differential Diagnosis Differential Diagnoses: The differential diagnosis associated with the presentation includes (neck sprain, fracture, ) Admission/Observation Consideration of admission/observation: Escalation of care including admission/observation considered Independent Interpretation I performed an independent interpretation of an: Plain X-Ray Radiology Impression Discussion of test interpretation with radiology: I have reviewed the radiologist's reading. Independent Historian Clinical information obtained from an independent historian. History obtained from or confirmed by: Other (patient) Prescription Management I considered prescription management with: Pain Medication Discharge Plan Discharge Clinical Impression: Cervical spondylosis, Neck strain, Torticollis Patient Disposition: Home, Self-Care Instructions: Cervical Strain (ED), Osteoarthritis (ED), Cervical Radiculopathy (ED) Additional Instructions: Recommend follow up with PCP. Return to the ED immediatley for fever, chillss, nuasea, vomitting, photophobia, weakness in extremities, chest pain, shortnes of breath, nuasea, dizziness, or any other concerning symptoms. EXAMINATION: XR CERVICAL SPINE CLINICAL INFORMATION: stiff neck after heavy lifting COMPARISON: None available. TECHNIQUE: 3 views of the cervical spine were obtained. FINDINGS: No significant scoliosis. There is mild straightening of the normal lordosis. Craniocervical junction and C1-2 articulation appear intact and aligned. No fracture, compression deformity, or suspicious bone lesion. No evidence of traumatic subluxation. Severe disc degeneration spanning C2-C7. Normal facet alignment with multilevel hypertrophic degenerative facet changes bilaterally. There is no prevertebral soft tissue swelling. Imaged lung apices are clear. XR/XR cervical spine 4V IMPRESSION: 1. No plain film evidence of acute cervical spine fracture or injury. 2. Moderate to advanced cervical spondylosis Electronically signed by: Henry Hewitt MD 01/14/2025 04:29 PM EDT RP Prescriptions: New naproxen 500 mg tablet 500 mg PO BID PRN (Reason: pain) Qty: 14 0RF cyclobenzaprine 10 mg tablet 10 mg PO TID PRN (Reason: muscle spasm) Qty: 21 0RF Rx Instructions: side effect is drowsiness. Do not take at work or while driving prednisone 20 mg tablet 40 mg PO DAILY 3 Days Qty: 6 0RF No Action amlodipine 5 mg tablet 5 mg PO DAILY 90 Days Qty: 90 0RF levothyroxine 100 mcg tablet 100 mcg PO DAILY calcium carbonate [Calcium 600] 600 mg calcium (1,500 mg) tablet 600 mg PO DAILY cholecalciferol (vitamin D3) 25 mcg (1,000 unit) capsule 25 mcg PO DAILY Discharge Date/Time: 01/14/25 18:20 Print Language: Mohawk
== END 2025-01-14 18:20 | disposition home or self-care (01) ==
PROVIDERS: Emergency Provider Emergency Medicine
DX: S16.1XXA Strain of muscle, fascia and tendon at neck level, initial encounter (principal); M47.892 Other spondylosis, cervical region; M43.6 Torticollis; X50.0XXA Overexertion from strenuous movement or load, initial encounter; X50.9XXA Other and unspecified overexertion or strenuous movements or postures, initial encounter; Y93.89 Activity, other specified; Y92.89 Other specified places as the place of occurrence of the external cause; Y99.8 Other external cause status; Z79.899 Other long term (current) drug therapy
CPT/HCPCS: 72050; 96372; 99282; 99284; J1885

== ENCOUNTER → 2025-01-14 15:41 | Outpatient (BNV) | payer MEDICARE, SELFPAY | PROVIDERS: Emergency Provider Emergency Medicine; Visit Provider Radiology Diagnostic Radiology | DX: M54.2 Cervicalgia (principal) | CPT/HCPCS: 72050 ==

== ENCOUNTER 2025-01-17 07:18 | Outpatient (REF) | payer MEDICARE, SELFPAY ==
[2025-01-17 07:30] LABS: MANUAL DIFF FLAG NO
[2025-01-17 07:46] LABS: Hematocrit 42.8 % (37.0-47.0); Hemoglobin 14.4 g/dl (12.0-16.0); Imm Gran Abs Auto 0.01 X10*3/uL (0.00-0.03); Imm Gran Pct Auto 0.3 % (0.0-0.4); Lymphocytes Absolute Auto 1.6 X10*3/uL (1.2-4.9); Mean Corpuscular HGB Conc 33.6 g/dl (31.0-35.0); Mean Corpuscular Hemoglobin 28.7 pg (27.0-33.0); Mean Corpuscular Volume 85.4 fL (80.0-98.0); NRBC Abs Auto 0.000 X10*3/uL (0.0-0.012); NRBC Pct Auto 0.0 /100WBC (0.0-0.2); Platelet Count 291 X10*3/uL (160-400); Red Blood Count 5.01 X10*6/uL (4.20-5.50); White Blood Count 3.9 X10*3/uL (4.8-10.8)
[2025-01-17 07:57] LABS: Hemoglobin A1C 163.9213 umol/L; Total Hemoglobin (HGBA1C) 3820.3169 umol/L
[2025-01-17 08:23] LABS: Alanine Aminotransferase 16 U/L (0-31); Albumin Level 4.2 g/dL (3.5-5.0); Alkaline Phosphatase 59 U/L (39-117); Anion Gap 13 (12-20); Aspartate Amino Transferase 20 U/L (5-31); Blood Urea Nitrogen 14 mg/dL (9-16); Calcium 9.2 mg/dL (8.4-10.2); Carbon Dioxide 29 mmol/L (22-29); Chloride 105 mmol/L (96-108); Cholesterol 206 mg/dL (<200); Estimated Glomerular Filt Rate > 60; HDL Cholesterol 56 mg/dL (>40); Potassium 3.8 mmol/L (3.3-5.1); Sodium 143 mmol/L (135-145); Total Protein 7.1 g/dL (6.5-8.0); Triglycerides 78 mg/dL (<150)
[2025-01-17 08:39] LABS: Free T4 (Free Thyroxine) 1.04 ng/dL (0.71-1.85)
== END 2025-01-17 07:19 | disposition home or self-care (01) ==
LOC: HO.LAB 07:18
DX: Z00.00 Encounter for general adult medical examination without abnormal findings (principal); K21.9 Gastro-esophageal reflux disease without esophagitis; E11.65 Type 2 diabetes mellitus with hyperglycemia; E78.00 Pure hypercholesterolemia, unspecified; E03.9 Hypothyroidism, unspecified
CPT/HCPCS: 36415; 80053; 80061; 83036; 84439; 84443; 85025

== ENCOUNTER 2025-01-22 09:25 | Outpatient (AMB) | payer MEDICARE, SELFPAY ==
--- NOTE | 2025-01-22 09:34 | A.OFFPC_ITS ---
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 Accompanied by: Self / Same As Patient Allergies No Known Allergies Allergy (Verified 01/22/25 09:48) Medication List - Last Reconciled 01/22/25 by Brandi Dumas PA-C amlodipine 5 mg PO DAILY 90 days calcium carbonate (Calcium 600) 600 mg PO DAILY cholecalciferol (vitamin D3) 25 mcg PO DAILY cyclobenzaprine 10 mg PO TID PRN levothyroxine 100 mcg PO DAILY naproxen 500 mg PO BID PRN prednisone 40 mg (2 x 20 mg) PO DAILY 3 days Tobacco use date assessed: 01/22/25 Fall risk assessment: No Falls in past year Last assessed Fall Risk: 01/22/25 Dental Screening Dental Screen Date: 01/22/25 Did you have a dental visit in the last 12 months?: Yes Did you have a dental problem in the last 6 months where you did not have access to dental care?: No Was dental information given to patient?: Patient has dentist HPI f/u labs HPI Details 79-year-old female with past medical his tory of hyperparathyroidism, osteoporosis, hypertension, multinodular thyroid last seen 11/21 coming in for follow up. Presenting with neck pain and lab result review. The patient reported a neck sprain caused by putting on and taking off compression socks, which she has been using due to previous ankle swelling. She experienced significant pain, requiring an emergency room visit where an X-ray was performed. The patient was informed that her blood sugar levels are in the prediabetic range, although she does not have diabetes. The patient's LDL cholesterol was noted to be 135 mg/dL, slightly above the desired level of less than 130 mg/dL. The patient reported pain in one toe, which was suspected to be due to a bone spur, although no definitive diagnosis was made. [facility] Medical History Hypertension Multinodular thyroid Hypothyroidism Vitamin D deficiency History of hyperparathyroidism Osteoporosis Hyperparathyroidism Incontinence Cystocele with prolapse Hypothyroid HTN (hypertension) Surgical History History of bilateral cataract extraction History of parathyroid surgery History of hernia repair History of lumpectomy of right breast Family History Father Cancer ALS (amyotrophic lateral sclerosis) Mother ALS (amyotrophic lateral sclerosis) Maternal Grandmother Diabetes Maternal Grandfather No problems noted. Paternal Grandmother No problems noted. Social History Housing: House Alcohol intake: current Alcohol intake frequency: holidays/special occasions only Patient Tobacco Use Status: Never used Tobacco e-Cigarette/Vaping Use: Never Used Second Hand Smoke Exposure: No service: No Current occupational status: retired Sexual orientation: Straight/Heterosexual Gender identity: Female Cognitive needs: No Hearing needs: Yes (hearing aide) Vision needs: Yes (glasses) Female Reproductive History Menstrual Age of Menarche: 14 Questionnaire PHQ-9 Over the last 2 weeks, how often have you been bothered by any of the following problems? 1. Little interest or pleasure in doing things: not at all 2. Feeling down, depressed, or hopeless: not at all 3. Trouble falling or staying asleep, or sleeping too much: not at all 4. Feeling tired or having little energy: not at all 5. Poor appetite or overeating: not at all 6. Feeling bad about yourself - or that you are a failure or have let yourself or your family down: not at all 7. Trouble concentrating on things, such as reading the newspaper or watching television: not at all 8. Moving or speaking so slowly that other people could have noticed. Or the opposite - being so fidgety or restless that you have been moving around a lot more than usual: not at all 9. Thoughts that you would be better off or of hurting yourself in some way: not at all Total score: 0 Depression Screening Interpretation: Negative Depression Screening Done: Yes Source: Developed by Drs. Keyon Ahmadi, Luana Peña, Constantine Scott and colleagues, with an educational lefty from [employer]. Thrive Questionnaire Date Thrive assessed: 11/21/24 I am a: Patient What is your living situation today?: I have a steady place to live Within the past 12 months, did the food you bought not last and you didn't have the money to get more?: Never true Within the past 12 months, did you worry whether your food would run out before you got money to buy more?: Never true Do you have trouble paying for medicines?: No Do you have trouble getting transportation to medical appointments?: No Do you have trouble paying your heating and electricity bill?: No Do you have trouble taking care of your child, family member or friend?: No Do you have trouble with day-to-day activities such as bathing, preparing meals, shopping, managing finances, etc.?: No Are you currently unemployed and looking for a job?: No Are you interested in more education?: No Please select the resources that you would like help with: None Currently or been in a relationship where the following occur: No concerns reported THRIVE Score: 0 AUDIT C Alcohol Use Questionnaire (AUDIT-C) 1. How often do you have a drink containing alcohol?: Never Total Score: 0 DENISE-7 AMB Questionnaire DENISE-7 Date DENISE - 7 assessed: 11/21/24 Feeling nervous, anxious, or on edge: 0 = Not at all Not being able to stop or control worryin = Not at all Worrying too much about different things: 0 = Not at all Trouble relaxin = Not at all Being so restless that it is hard to sit still: 0 = Not at all Becoming easily annoyed or irritable: 0 = Not at all Feeling afraid as if something awful might happen: 0 = Not at all Total DENISE-7 score (0-4 normal; 5-9 mild; 10-14 moderate; 15-21 severe): 0 Source: Developed by Drs. Keyon Ahmadi, Luana Peña, Constantine Scott and colleagues, with an educational lefty from [employer]. Review of Systems Const Denies body aches, Denies chills, Denies fever(s), Denies headache(s) and Denies poor appetite Eyes Reports no additional complaints ENT Denies dysphagia, Denies dizziness, Denies headache(s) and Denies odynophagia Card Denies chest pain, Denies syncope, Denies edema, Denies irregular heart rhythm, Denies lightheadedness and Denies dyspnea Resp Denies cough and Denies dyspnea GI Denies abdominal pain, Denies constipation, Denies dysphagia, Denies diarrhea, Denies nausea, Denies odynophagia and Denies vomiting Reports no additional complaints Musc Reports no additional complaints and Denies abnormal gait Skin/Breast Reports system reviewed and no additional complaints, except as documented Neuro Denies abnormal gait, Denies dizziness, Denies syncope and Denies headache(s) Psych Reports no additional complaints Physical exam (Primary Care) Vital Signs: Last Vital Signs BP 138/78 01/22/25 10:16 Oxygen Delivery Method Room Air 01/22/25 09:36 BMI result Body Mass Index 27.5 Tobacco/Smoking Status: Tobacco use Status Tobacco use date assessed 01/22/25 01/22/25 09:42 Patient Tobacco Use Status Never used Tobacco 01/22/25 09:42 e-Cigarette/Vaping Use Never Used 01/22/25 09:42 PHQ-9: PHQ-9 Score PHQ-9: Total score 0 01/22/25 09:46 Depression Screening Interpretation: Negative Thrive Assessment: Date of Thrive Assessment Date Thrive assessed 11/21/24 01/22/25 09:42 Currently or been in a relationship where the following occur: No concerns reported Const General: cooperative, healthy appearing, comfortable and no acute distress Orientation/consciousness: patient oriented x3 HENMT Head: Yes normocephalic Ears: hearing grossly normal bilaterally General nose exam: Normal external nose present Eyes General: appearance normal, both eyes and all related structures Conjunctivae: conjunctivae normal Neck Neck: Yes full ROM and Yes no lymphadenopathy Resp Effort & Inspection: normal respiratory effort Auscultation: clear to auscultation bilaterally, no crackles, no rales, no rhonchi and no wheezes Cardio Rate: regular rate Rhythm: regular rhythm Skin General skin exam: no rashes or lesions noted Neuro General: patient oriented x3 Gait exam (Neuro): Normal gait present Extrem General: Yes normal to inspection, Yes full ROM and No edema Psych Affect: normal affect Attitude: cooperative Insight: Good insight present (Psych) Judgement: Good judgement present (Psych) Coding Level of Care Code Est Pt Level 3 (70821) Diagnoses Primary hypertension I10 Hypertension type: primary hypertension Acquired hypothyroidism E03.9 Hypothyroidism type: acquired GERD (gastroesophageal reflux disease) K21.9 Hypercholesterolemia E78.00 Elevated blood sugar R73.9 Pain in toe of left foot M79.675 Assessment & Plan Assessment & Plan (1) Hypertension: Code(s): I10 - Essential (primary) hypertension Category: Medical Qualifiers: Hypertension type: primary hypertension Qualified Code(s): I10 - Essential (primary) hypertension Plan: Continue on current blood pressure medication. Avoid salt intake and encourage healthy diet and regular exercise. (2) Hypothyroidism: Code(s): E03.9 - Hypothyroidism, unspecified Category: Medical Qualifiers: Hypothyroidism type: acquired Qualified Code(s): E03.9 - Hypothyroidism, unspecified Plan: Blood work is up to date and she will continue on Levothyroxine at this time. (3) GERD (gastroesophageal reflux disease): Code(s): K21.9 - Gastro-esophageal reflux disease without esophagitis Category: Medical Plan: Avoid trigger foods such as citrus, tomato products, soda, caffeine, spicy foods and other foods that may be irritating to your stomach. Avoid laying flat 3-4 hours after eating and elevate the head of the bed 30 degrees to prevent acid from moving into the esophagus. (4) Hypercholesterolemia: Code(s): E78.00 - Pure hypercholesterolemia, unspecified Category: Medical Plan: Avoid foods that are high in cholesterol such as red meat, fried foods, eggs and baked goods. Triglyceride goal of less than 150 and LDL goal of less than 130. Last LDL 135 and ASCVD risk calculator 29% recommending statin at this time. Patient is declining medical management at this time and would like to work on dietary and lifestyle modication. She does understand the risks of elevated cholesterol over period of time and agrees to follow up with her PCP in [place] (5) Elevated blood sugar: Code(s): R73.9 - Hyperglycemia, unspecified Category: Medical Plan: Decrease the amount of carbohydrates such as pasta, bread, rice, and potatoes and limit the amount of sweets. Although fruits are generally healthy they should be eaten in moderation as they are still high in sugar. A1c on last blood wotk 6.1%. (6) Pain in toe of left foot: Code(s): M79.675 - Pain in left toe(s) Category: Medical Plan: Reporting pain in the left 4th digit of the foot on occasion without known triggers. Discussed proper footwear avoidance of prolonged standing or walking and follow up as needed for this concern. Plan This note was constructed using voice recognition software. While every effort has been made to ensure accuracy and supervisor electric, still areas may have been included sometimes these areas may affect the content or meeting of the given symptoms. Total time spent caring for the patient today was 20 minutes. This includes time spent before the visit reviewing the chart, time spent during the visit, and time spent after the visit and documentation. Patient was informed and verbally consented to the use of an ambient scribe for clinic note documentation during this visit. Medications: Refilled amlodipine 5 mg PO DAILY 90 tabs 0RF 90 days Discontinued cyclobenzaprine side effect is drowsiness. Do not take at work or while driving Discontinued Reason: Patient no longer taking 10 mg PO TID PRN 21 tabs 0RF muscle spasm prednisone Discontinued Reason: Patient no longer taking 40 mg (2 x 20 mg) PO DAILY 3 days 6 tabs 0RF naproxen Discontinued Reason: Patient no longer taking 500 mg PO BID PRN 14 tabs 0RF pain
[2025-01-22 09:36] VITALS: BP 142/62; BMI 27.5
[2025-01-22 10:16] VITALS: BP 138/78
== END 2025-01-22 10:22 | disposition home or self-care (01) ==
LOC: HO.HMCH 09:25
DX: I10 Essential (primary) hypertension (principal); E03.9 Hypothyroidism, unspecified; K21.9 Gastro-esophageal reflux disease without esophagitis; E78.00 Pure hypercholesterolemia, unspecified; R73.9 Hyperglycemia, unspecified; M79.675 Pain in left toe(s)

== ENCOUNTER → 2025-01-22 09:25 | Outpatient (BNVA) | payer MEDICARE, SELFPAY | DX: I10 Essential (primary) hypertension (principal); E03.9 Hypothyroidism, unspecified; K21.9 Gastro-esophageal reflux disease without esophagitis; E78.00 Pure hypercholesterolemia, unspecified; R73.9 Hyperglycemia, unspecified; M79.675 Pain in left toe(s) | CPT/HCPCS: 99212 ==